=== PATIENT | female | born 1940 | race Caucasian/White ===

== ENCOUNTER 2016-07-26 22:19 | Inpatient (IN) | payer MEDICARE, MEDICAID ==
[2016-07-26] MEDS ORDERED: IBUPROFEN 400 MG TABLET PO ONE (22:52)
--- NOTE | 2016-07-26 22:53 | ER Document Report ---
ED General - General Time seen by provider: 22:50 Mode of Arrival: Ambulatory Information source: Friend Cannot obtain history due to: Other - patient is non-verbal TRAVEL OUTSIDE OF THE [place] IN LAST 30 DAYS: No - HPI Onset: Other - see HPI Onset/Duration: Gradual Associated symptoms: Fever <ROSINA ANDERSON - Last Filed: 07/27/16 05:26> <TYRONHU ISMAEL - Last Filed: 07/27/16 05:51> - General Chief Complaint: cough, fever, lethargy Stated Complaint: COUGH Notes: Patient is a 76 year-old female presenting to the emergency department with a fever. Patient's caregiver states that she has had a cough for the past few days and today started a fever. Patient is non-verbal. Patient has had no appetite, and has been feeling weak. Patient's caregiver states that the patient has just been sleeping a lot. Patient's temperature today was 103 F and was given Tylenol. Patient lives in a alf. Patient's PCP is Dr. Bernal. (ROSINA ANDERSON) - Related Data Allergies/Adverse Reactions: No Known Allergies Allergy (Verified 10/14/13 11:38) Past Medical History - General Information source: Friend - caregiver, [facility] Records - Social History Smoking Status: Unknown if Ever Smoked Family History: None Patient has suicidal ideation: No Patient has homicidal ideation: No - Past Medical History Cardiac Medical History: Reports: Hx Hypercholesterolemia, Hx Hypertension Neurological Medical History: Reports: Hx Cerebrovascular Accident Endocrine Medical History: Reports: Hx Diabetes Mellitus Type 1 Malignancy Medical History: Reports: Hx Skin Cancer GI Medical History: Reports: Hx Gastroesophageal Reflux Disease Past Surgical History: Reports: Hx Hysterectomy - Immunizations Hx Diphtheria, Pertussis, Tetanus Vaccination: Yes Hx Pneumococcal Vaccination: 03/16/10 <ROSINA ANDERSON - Last Filed: 07/27/16 05:26> Review of Systems - Review of Systems Constitutional: See HPI, Fever EENT: No symptoms reported Cardiovascular: No symptoms reported Respiratory: See HPI, Cough Gastrointestinal: See HPI, Poor appetite Genitourinary: No symptoms reported Female Genitourinary: No symptoms reported Musculoskeletal: No symptoms reported Skin: No symptoms reported Hematologic/Lymphatic: No symptoms reported Neurological/Psychological: No symptoms reported -: Yes All other systems reviewed and negative <ROSINA ANDERSON - Last Filed: 07/27/16 05:26> Physical Exam - Vital signs Interpretation: Hypotensive, Bradycardic, Febrile - General General appearance: Appears well, Alert In distress: Mild - HEENT Head: Normocephalic, Atraumatic Eyes: Normal Pupils: PERRL Mucous membranes: Dry - Respiratory Respiratory status: No respiratory distress Chest status: Nontender Breath sounds: Decreased air movement Chest palpation: Normal - Cardiovascular Rhythm: Regular Heart sounds: Normal auscultation - Abdominal Inspection: Normal Distension: No distension Bowel sounds: Normal Tenderness: Nontender Organomegaly: No organomegaly - Back Back: Normal, Nontender - Extremities General upper extremity: Normal inspection, Normal ROM, Normal strength General lower extremity: Normal inspection, Normal ROM, Normal strength - Neurological Neuro grossly intact: Yes Cognition: Normal Orientation: AAOx4 Crenshaw Coma Scale Eye Opening: Spontaneous Carlos Coma Scale Verbal: None Crenshaw Coma Scale Motor: Obeys Commands Carlos Coma Scale Total: 11 Speech: Other - patient is non-verbal - Psychological Associated symptoms: Normal affect, Normal mood - Skin Skin Temperature: Warm Skin Moisture: Dry <ROSINA ANDERSON - Last Filed: 07/27/16 05:26> - Vital signs Interpretation: Hypotensive, Bradycardic - Respiratory Breath sounds: Decreased air movement - L base. No: Normal <HU ACKERMAN - Last Filed: 07/27/16 05:51> - Vital signs Vitals: Temp 101.0 F H 07/26/16 22:55 (HU ACKERMAN) Course - Laboratory Result Diagrams: 07/27/16 00:41 07/27/16 00:41 <ROSINA ANDERSON - Last Filed: 07/27/16 05:26> - Laboratory Result Diagrams: 07/27/16 00:41 07/27/16 00:41 - Diagnostic Test Radiology reviewed: Image reviewed, Reports reviewed <HU ACKERMAN - Last Filed: 07/27/16 05:51> - Re-evaluation Re-evalutation: 07/27/16 Patient is a 76-year-old female who is brought in for weakness and fever at her place of living. Patient was found to be bradycardic and hypotensive. Patient is also febrile. Patient has concern for pneumonia with her cough and fever and also decreased breath sounds in her left base. Patient also with probable UTI on urinalysis. Patient will be given Rocephin and azithromycin. Blood pressure has responded to fluid bolus and also glucagon to counteract beta marcela. Stable at time of admission to the IMCU. (HU ACKERMAN) - Vital Signs Vital signs: Temp Pulse Resp BP Pulse Ox 97.8 F 14 124/62 90 L 07/27/16 04:21 07/27/16 05:14 07/27/16 05:14 07/27/16 05:14 (HU ACKERMAN) - Laboratory Laboratory results interpreted by me: 07/27/16 07/27/16 07/27/16 00:41 00:41 00:50 RDW 14.1 H Plt Count 142 L Monocytes % (Manual) 25 H Chloride 96 L BUN 21 H Creatinine 1.66 H Est GFR ( Amer) 36 L Est GFR (Non-Af Amer) 30 L Alkaline Phosphatase 139 H Urine Protein 30 H Urine Blood SMALL H Ur Leukocyte Esterase LARGE H (HU ACKERMAN) Discharge <ROSINA ANDERSON - Last Filed: 07/27/16 05:26> - [facility] <HU ACKERMAN - Last Filed: 07/27/16 05:51> - Discharge Clinical Impression: Renal insufficiency Pneumonia Qualifiers: Pneumonia type: due to unspecified organism Laterality: left Lung location: unspecified part of lung Qualified Code(s): J18.9 - Pneumonia, unspecified organism UTI (urinary tract infection) Qualifiers: Urinary tract infection type: site unspecified Hematuria presence: without hematuria Qualified Code(s): N39.0 - Urinary tract infection, site not specified Condition: Stable Disposition: ADMITTED INPATIENT Scribe Attestation: 07/27/16 05:18 I personally performed the services described in the documentation, reviewed and edited the documentation which was dictated to the scribe in my presence, and it accurately records my words and actions. (HU ACKERMAN) Scribe Documentation <ROSINA ANDERSON - Last Filed: 07/27/16 05:26> <HU ACKERMAN - Last Filed: 07/27/16 05:51> - Scribe Written by Scribe:: HU CUELLAR, EL 07/27/16 0200 Acting as scribe for: Dr. Ackerman ([facility]) (HU ACKERMAN)
[2016-07-26] MEDS ORDERED: NORMAL SALINE 1000 ML 1,000 ML IV ONE (23:21)
[2016-07-27] MEDS ORDERED: GLUCAGON,HUMAN RECOMB 1 MG INJ SUBCUT ONE (00:49)
[2016-07-27 00:56] LABS: VENOUS BLOOD PCO2 57.3 mmHg (35-63); VENOUS BLOOD PH 7.35 (7.30-7.42)
[2016-07-27 01:02] LABS: PROTHROMBIN TIME 13.4 SEC (11.4-15.4)
[2016-07-27 01:13] LABS: APPEARANCE,URINE CLOUDY; BILIRUBIN,URINE NEGATIVE (NEGATIVE); GLUCOSE, URINE NEGATIVE (NEGATIVE); KETONES,URINE NEGATIVE (NEGATIVE); LEUKOCYTE ESTERASE,URINE LARGE (NEGATIVE); NITRITE,URINE NEGATIVE (NEGATIVE); PROTEIN,URINE 30 mg/dL (NEGATIVE); URINE SPECIFIC GRAVITY 1.006; UROBILINOGEN,URINE NEGATIVE mg/dL (<2.0)
[2016-07-27] MEDS ORDERED: CEFTRIAXONE 1 GM/D5W RTU 50 ML IV ONE (01:14)
[2016-07-27 01:21] LABS: ALANINE AMINOTRANSFERASE 10 U/L (9-52); ALBUMIN 4.1 g/dL (3.5-5.0); ALKALINE PHOSPHATASE 139 U/L (38-126); ANION GAP 12 (5-19); ASPARTATE AMINO TRANSFERASE 19 U/L (14-36); BILIRUBIN,TOTAL 0.5 mg/dL (0.2-1.3); BLOOD UREA NITROGEN 21 mg/dL (7-20); CALCIUM 9.6 mg/dL (8.4-10.2); CARBON DIOXIDE 30 mmol/L (22-30); CHLORIDE 96 mmol/L (98-107); CREATININE RESULT 1.66 mg/dL (0.52-1.25); GLUCOSE 106 mg/dL (75-110); HEMATOCRIT 38.6 % (36.0-47.0); HEMOGLOBIN 12.8 g/dL (12.0-15.5); HGB HCT DIFFERENCE -0.2; MEAN CORPUSCULAR HEMOGLOBIN 29.8 pg (27.0-33.4); MEAN CORPUSCULAR HGB CONC 33.1 g/dL (32.0-36.0); MEAN CORPUSCULAR VOLUME 90 fl (80-97); RED BLOOD COUNT 4.29 10^6/uL (3.72-5.28); RED CELL DISTRIBUTION WIDTH 14.1 % (11.5-14.0); SODIUM 137.7 mmol/L (137-145); TOTAL PROTEIN 7.6 g/dL (6.3-8.2); WHITE BLOOD COUNT 4.6 10^3/uL (4.0-10.5)
[2016-07-27 01:37] LABS: BAND NEUTROPHILS % (MANUAL) 5 % (3-5); BASOPHILS % (MANUAL) 0 % (0-2); EOSINOPHILS % (MANUAL) 0 % (0-6); LYMPHOCYTES % (MANUAL) 21 % (13-45); TOTAL CELLS COUNTED 100
[2016-07-27 01:42] LABS: TOXIC GRANULATION SLIGHT
[2016-07-27 01:43] LABS: TEAR DROP CELLS SLIGHT; TOXIC VACUOLATION PRESENT
[2016-07-27] MEDS ORDERED: AZITHROMYCIN INJ 500 MG VIAL IV ONE (02:00)
[2016-07-27] MEDS ORDERED: NORMAL SALINE 1000 ML 1,000 ML IV PRN (08:57)
--- NOTE | 2016-07-27 09:43 | EKG REPORT ---
SEVERITY:- NORMAL ECG - SINUS RHYTHM : Confirmed by: Carmen Schmitt MD 27-Jul-2016 09:42:50
[2016-07-27 10:32] LABS: PROTHROMBIN TIME 13.2 SEC (11.4-15.4)
[2016-07-27 10:33] LABS: PARTIAL THROMBOPLASTIN TIME 26.6 SEC (23.5-35.8)
[2016-07-27] MEDS ORDERED: ENOXAPARIN SODIUM INJ 30 MG/0.3 ML DISP.SYRIN SUBCUT ONE (11:00)
[2016-07-27] MEDS ORDERED: LANSOPRAZOLE 30 MG TAB.RAP.DR PO ONE (11:00)
--- NOTE | 2016-07-27 17:39 | PDOC H&P ---
History of Present Illness Admission Date/PCP: 07/27/16 08:56 Patient complains of: Fever and Cough History of Present Illness: JOSE PHILLIP is a 76 year old female resident at a local long term. She was brought to the ED by caregiver with listed complaints. business office associate reported few days of minimally productive cough with associated generalized weakness, increase sleepiness, poor appetite and oral intake. On the day of presentation patient had fever or 103F for which she received Tylenol at home. Her initial assessment in the ED was remarkable for episode of hypotension, hypoxemia and decrease breath sounds. There was associated abnormal urinalysis findings. In view of her presenting constellation and clinical findings patient was advised hospitalization for further evaluation and management. Past Medical History Cardiac Medical History: Reports: Hyperlipidema, Hypertension Denies: Coronary Artery Disease, Myocardial Infarction Pulmonary Medical History: Denies: Asthma, Bronchitis, Chronic Obstructive Pulmonary Disease (COPD), Pneumonia Neurological Medical History: Denies: Seizures Endocrine Medical History: Reports: Diabetes Mellitus Type 1 Malignancy Medical History: Reports: Skin Cancer GI Medical History: Reports: Gastroesophageal Reflux Disease Musculoskeltal Medical History: Denies: Arthritis Hematology: Denies: Anemia Past Surgical History Past Surgical History: Reports: Hysterectomy Social History Smoking Status: Unknown if Ever Smoked Frequency of Alcohol Use: None Hx Recreational Drug Use: No Hx Prescription Drug Abuse: No Family History Family History: None Parental Family History Reviewed: Yes Children Family History Reviewed: Yes Sibling(s) Family History Reviewed.: Yes Medication/Allergy Home Medications: Amlodipine Besylate [Norvasc 2.5 mg Tablet] 2.5 mg PO DAILY 07/27/16 Aspirin [Aspirin 81 mg Chewable Tablet] 81 mg PO DAILY 07/27/16 Calcium Carbonate [Os-Adolfo 500 mg Tablet (Oyster-Shell)] 500 mg PO BID 07/27/16 Cetirizine HCl [Zyrtec 10 mg Tablet] 10 mg PO DAILY 07/27/16 Levothyroxine Sodium [Synthroid 0.1 mg Tablet] 100 mcg PO DAILY 07/27/16 Omeprazole 20 mg PO DAILY 07/27/16 Propranolol HCl 80 mg PO QHS 07/27/16 Propranolol HCl [Inderal] 60 mg PO QAM 07/27/16 Rosuvastatin Calcium [Crestor 5 mg Tablet] 5 mg PO QHS 07/27/16 Allergies/Adverse Reactions: No Known Allergies Allergy (Verified 10/14/13 11:38) Review of Systems ROS unobtainable: Due to mental status All systems: reviewed and no additional remarkable complaints except as stated Physical Exam Vital Signs: Temp Pulse Resp BP Pulse Ox 100.3 F 91 22 H 156/56 H 94 07/27/16 16:03 07/27/16 16:03 07/27/16 16:03 07/27/16 16:03 07/27/16 16:03 Intake & Output 07/26/16 07/27/16 07/28/16 06:59 06:59 06:59 Intake Total 240 Balance 240 General appearance: PRESENT: no acute distress, cooperative Head exam: PRESENT: atraumatic, normocephalic Eye exam: PRESENT: conjunctiva pink, EOMI, PERRLA. ABSENT: scleral icterus Ear exam: PRESENT: normal external ear exam Mouth exam: PRESENT: moist, tongue midline Throat exam: ABSENT: post pharyngeal erythema, tonsillar erythema, tonsillar exudate, tonsillogmegaly, other Neck exam: PRESENT: full ROM. ABSENT: carotid bruit, JVD, lymphadenopathy, thyromegaly Respiratory exam: PRESENT: crackles - basilar region, decreased breath sounds. ABSENT: accessory muscle use, chest wall tenderness, clear to auscultation kim, prolonged expiratory phas, rales, retraction, rhonchi, stridor, symmetrical, tachypnea, unlabored, wheezes, other Cardiovascular exam: PRESENT: RRR. ABSENT: diastolic murmur, rubs, systolic murmur GI/Abdominal exam: PRESENT: normal bowel sounds, soft. ABSENT: distended, guarding, mass, organolmegaly, rebound, tenderness Extremities exam: PRESENT: full ROM Musculoskeletal exam: PRESENT: ambulatory, full ROM, normal inspection Neurological exam: PRESENT: altered - related to her developmental mental retardation, awake, reflexes normal, normal gait Psychiatric exam: PRESENT: appropriate affect, normal mood Skin exam: PRESENT: dry, intact, warm. ABSENT: cyanosis, rash Results Impressions: Chest X-Ray 07/26/16 22:41 IMPRESSION: HEART ENLARGED WITHOUT FAILURE. NO OTHER SIGNIFICANT RADIOGRAPHIC FINDING IN THE CHEST. Status: Image reviewed by me - moderate cardiomegaly without any other significant pathology. Assessment & Plan - Diagnosis (1) Fatigue Qualifiers: Fatigue type: unspecified Qualified Code(s): R53.83 - Other fatigue Is this a current diagnosis for this admission?: YesPlan: Related to ongoing infectious process, loss of appetite and poor oral intake. We will start on oral nutritional supplementation. (2) Pneumonia Qualifiers: Pneumonia type: due to unspecified organism Laterality: left Lung location: unspecified part of lung Qualified Code(s): J18.9 - Pneumonia, unspecified organism Is this a current diagnosis for this admission?: YesPlan: Start on IV Zithromax and IV Rocephin coverage. Follow up on blood culture findings. (3) UTI (urinary tract infection) Qualifiers: Urinary tract infection type: site unspecified Hematuria presence: without hematuria Qualified Code(s): N39.0 - Urinary tract infection, site not specified Is this a current diagnosis for this admission?: YesPlan: Start on IV Rocephin coverage. Follow on urine culture findings for appropriate antibiotic selection and dosage adjustment. (4) HLD (hyperlipidemia) Is this a current diagnosis for this admission?: YesPlan: Continue preadmission medication management. (5) HTN (hypertension) Is this a current diagnosis for this admission?: YesPlan: Continue preadmission medication management. (6) Hypothyroid Qualifiers: Hypothyroidism type: acquired Qualified Code(s): E03.9 - Hypothyroidism, unspecified Is this a current diagnosis for this admission?: YesPlan: Continue preadmission medication management. (7) Moderate mental retardation Is this a current diagnosis for this admission?: YesPlan: Continue preadmission management with environment supervision and reorientation intervention. - Time Time Spent: 50 to 70 Minutes Medications reviewed and adjusted accordingly: Yes Anticipated discharge: Home Within: Other - Inpatient Certification Based on my medical assessment, after consideration of the patient's comorbidities, presenting symptoms, or acuity I expect that the services needed warrant INPATIENT care.: Yes I certify that my determination is in accordance with my understanding of Medicare's requirements for reasonable and necessary INPATIENT services [42 CFR 412.3e].: Yes Medical Necessity: Need Close Monitoring Due to Risk of Patient Decompensation, Need For IV Fluids, Need for IV Antibiotics, Risk of Complication if Not Cared For in Hospital Post Hospital Care: D/C Sustainability Engineer Documentation - Plan Summary Plan Summary: See admitting physician orders.
[2016-07-27] MEDS ORDERED: ACETAMINOPHEN 325 MG TABLET PO PRN (17:40)
[2016-07-27] MEDS: AZITHROMYCIN 500 MG in DEXTROSE 5%-WATER 250 ML IV SCH (21:57)
[2016-07-27] MEDS: CEFTRIAXONE 1 GM/D5W RTU 1 GM/50 ML RTUPB IV SCH (23:58)
[2016-07-28] MEDS: LANSOPRAZOLE 30 MG TAB.RAP.DR PO SCH (05:53)
[2016-07-28 06:10] LABS: HEMATOCRIT 41.6 % (36.0-47.0); HEMOGLOBIN 13.1 g/dL (12.0-15.5); HGB HCT DIFFERENCE -2.3; MEAN CORPUSCULAR HEMOGLOBIN 28.7 pg (27.0-33.4); MEAN CORPUSCULAR HGB CONC 31.5 g/dL (32.0-36.0); MEAN CORPUSCULAR VOLUME 91 fl (80-97); RED BLOOD COUNT 4.56 10^6/uL (3.72-5.28); RED CELL DISTRIBUTION WIDTH 14.5 % (11.5-14.0); WHITE BLOOD COUNT 3.5 10^3/uL (4.0-10.5)
[2016-07-28 06:24] LABS: ALANINE AMINOTRANSFERASE 20 U/L (9-52); ALBUMIN 3.3 g/dL (3.5-5.0); ALKALINE PHOSPHATASE 117 U/L (38-126); ANION GAP 10 (5-19); ASPARTATE AMINO TRANSFERASE 29 U/L (14-36); BILIRUBIN,TOTAL 0.2 mg/dL (0.2-1.3); BLOOD UREA NITROGEN 18 mg/dL (7-20); CALCIUM 8.5 mg/dL (8.4-10.2); CARBON DIOXIDE 29 mmol/L (22-30); CHLORIDE 102 mmol/L (98-107); CREATININE RESULT 1.32 mg/dL (0.52-1.25); GLUCOSE 80 mg/dL (75-110); POTASSIUM 3.5 mmol/L (3.6-5.0); TOTAL PROTEIN 7.3 g/dL (6.3-8.2)
[2016-07-28 06:47] LABS: BASOPHILS % (MANUAL) 0 % (0-2); EOSINOPHILS % (MANUAL) 0 % (0-6); LYMPHOCYTES % (MANUAL) 33 % (13-45); TOTAL CELLS COUNTED 100
[2016-07-28 07:02] LABS: ANISOCYTOSIS SLIGHT; POLYCHROMASIA SLIGHT; TOXIC VACUOLATION PRESENT
[2016-07-28] MEDS ORDERED: INFLUENZA ADLT QUAD (36MOS+) 2016-17 VAC 0.5 ML SYR IM PRN (07:21)
[2016-07-28] MEDS ORDERED: ENOXAPARIN SODIUM INJ 40 MG/0.4 ML DISP.SYRIN SUBCUT SCH (08:00)
[2016-07-28] MEDS: ENOXAPARIN SODIUM INJ 30 MG/0.3 ML DISP.SYRIN SUBCUT SCH (08:20)
[2016-07-28] MEDS: AMLODIPINE BESYLATE 2.5 MG TABLET PO SCH (10:19)
[2016-07-28] MEDS: LEVOTHYROXINE SODIUM 0.1 MG TABLET PO SCH (10:19)
[2016-07-28] MEDS: POTASSI CL 20 MEQ/50 ML RIDER 50 ML IV SCH ×2 (10:20→12:04)
[2016-07-28 14:13] LABS: PATH REVIEW PATHOLOGIST REVIEWED
--- NOTE | 2016-07-28 14:45 | PDOC PROGRESS REPORT ---
Subjective Progress Note for:: 07/28/16 Subjective:: Remain at baseline mental limitation due to developmental deficiency. No reported fever, vomiting, difficulty with breathing or observed chest pain. Remain on IV Zithromax and Rocephin coverage. She remain on IV fluid support. Tolerating oral feeding with cut food and meat. Physical Exam Vital Signs: Temp Pulse Resp BP Pulse Ox 99.3 F 114 H 20 138/65 H 97 07/28/16 11:20 07/28/16 11:20 07/28/16 11:20 07/28/16 11:20 07/28/16 11:20 Intake & Output 07/27/16 07/28/16 07/29/16 06:59 06:59 06:59 Intake Total 1690 67 Balance 1690 67 Weight 60.1 kg General appearance: PRESENT: no acute distress, well-developed, well-nourished Head exam: PRESENT: atraumatic, normocephalic Eye exam: PRESENT: conjunctiva pink, EOMI, PERRLA. ABSENT: scleral icterus Neck exam: PRESENT: full ROM. ABSENT: carotid bruit, JVD, lymphadenopathy, thyromegaly Respiratory exam: PRESENT: decreased breath sounds. ABSENT: accessory muscle use, chest wall tenderness, clear to auscultation kim, crackles, prolonged expiratory phas, rales, retraction, rhonchi, stridor, symmetrical, tachypnea, unlabored, wheezes, other Cardiovascular exam: PRESENT: RRR. ABSENT: diastolic murmur, rubs, systolic murmur GI/Abdominal exam: PRESENT: normal bowel sounds, soft. ABSENT: distended, guarding, mass, organolmegaly, rebound, tenderness Musculoskeletal exam: PRESENT: ambulatory Neurological exam: PRESENT: alert, awake, other - limited verbal communication due to her developmental deficiency. Psychiatric exam: PRESENT: flat affect, normal mood Skin exam: PRESENT: dry, intact, warm. ABSENT: cyanosis, rash Results Laboratory Results: 07/28/16 05:18 07/28/16 05:18 07/28/16 07/28/16 07/28/16 05:18 05:18 05:18 WBC 3.5 L RBC 4.56 Hgb 13.1 Hct 41.6 MCV 91 MCH 28.7 MCHC 31.5 L RDW 14.5 H Plt Count 118 L Seg Neutrophils % Not Reportable Lymphocytes % Not Reportable Monocytes % Not Reportable Eosinophils % Not Reportable Basophils % Not Reportable Absolute Neutrophils Not Reportable Absolute Lymphocytes Not Reportable Absolute Monocytes Not Reportable Absolute Eosinophils Not Reportable Absolute Basophils Not Reportable Sodium 141.0 Potassium 3.5 L Chloride 102 Carbon Dioxide 29 Anion Gap 10 BUN 18 Creatinine 1.32 H Est GFR ( Amer) 47 L Est GFR (Non-Af Amer) 39 L Glucose 80 Calcium 8.5 Magnesium 1.9 Total Bilirubin 0.2 AST 29 ALT 20 Alkaline Phosphatase 117 Total Protein 7.3 Albumin 3.3 L Impressions: Chest X-Ray 07/26/16 22:41 IMPRESSION: HEART ENLARGED WITHOUT FAILURE. NO OTHER SIGNIFICANT RADIOGRAPHIC FINDING IN THE CHEST. Assessment & Plan - Diagnosis (1) Fatigue Qualifiers: Fatigue type: unspecified Qualified Code(s): R53.83 - Other fatigue Is this a current diagnosis for this admission?: Yes (2) Pneumonia Qualifiers: Pneumonia type: due to unspecified organism Laterality: left Lung location: unspecified part of lung Qualified Code(s): J18.9 - Pneumonia, unspecified organism Is this a current diagnosis for this admission?: YesPlan: Start on IV Zithromax and IV Rocephin coverage. Follow up on blood culture findings of gram positive cocci in clusters for organism identification and sensitivity for adjustment in antibiotic coverage as needed. (3) UTI (urinary tract infection) Qualifiers: Urinary tract infection type: site unspecified Hematuria presence: without hematuria Qualified Code(s): N39.0 - Urinary tract infection, site not specified Is this a current diagnosis for this admission?: YesPlan: Start on IV Rocephin coverage. Follow on urine culture growth of gram negative rods for organism identification and sensitivity. I will adjust coverage based of final report. (4) HLD (hyperlipidemia) Is this a current diagnosis for this admission?: Yes (5) HTN (hypertension) Is this a current diagnosis for this admission?: Yes (6) Hypothyroid Qualifiers: Hypothyroidism type: acquired Qualified Code(s): E03.9 - Hypothyroidism, unspecified Is this a current diagnosis for this admission?: Yes (7) Moderate mental retardation Is this a current diagnosis for this admission?: Yes (8) Hypokalemia due to loss of potassium Is this a current diagnosis for this admission?: YesPlan: Patient will receive potassium chloride supplementation via K-Tevin. Her serum Magnesium level was satisfactorily adequate. - Time Time Spent with patient: 25-34 minutes Medications reviewed and adjusted accordingly: Yes Anticipated discharge: Home - retirement. Within: Other - Inpatient Certification Based on my medical assessment, after consideration of the patient's comorbidities, presenting symptoms, or acuity I expect that the services needed warrant INPATIENT care.: Yes I certify that my determination is in accordance with my understanding of Medicare's requirements for reasonable and necessary INPATIENT services [42 CFR 412.3e].: Yes Medical Necessity: Need For IV Fluids, Need for IV Antibiotics, Risk of Complication if Not Cared For in Hospital Post Hospital Care: D/C Scarfer Operator Documentation - Plan Summary Plan Summary: see attending physician orders.
[2016-07-28] MEDS ORDERED: (PENDING PHARMACY ID) (Rosuvastatin Calcium [Crestor 5 Mg Tablet] 5 MG) PO SCH (22:00)
[2016-07-28] MEDS: ATORVASTATIN CALCIUM 10 MG TABLET PO SCH (23:04)
[2016-07-28] MEDS: AZITHROMYCIN 500 MG in DEXTROSE 5%-WATER 250 ML IV SCH (23:05)
[2016-07-29] MEDS: CEFTRIAXONE 1 GM/D5W RTU 1 GM/50 ML RTUPB IV SCH (04:14)
[2016-07-29] MEDS: LANSOPRAZOLE 30 MG TAB.RAP.DR PO SCH (05:51)
[2016-07-29 07:28] LABS: HEMATOCRIT 39.6 % (36.0-47.0); HGB HCT DIFFERENCE -0.6; MEAN CORPUSCULAR HEMOGLOBIN 29.5 pg (27.0-33.4); MEAN CORPUSCULAR HGB CONC 32.8 g/dL (32.0-36.0); MEAN CORPUSCULAR VOLUME 90 fl (80-97); RED CELL DISTRIBUTION WIDTH 14.5 % (11.5-14.0); WHITE BLOOD COUNT 2.8 10^3/uL (4.0-10.5)
[2016-07-29 07:31] LABS: ANION GAP 13 (5-19); BLOOD UREA NITROGEN 16 mg/dL (7-20); CARBON DIOXIDE 26 mmol/L (22-30); CHLORIDE 104 mmol/L (98-107); CREATININE RESULT 1.01 mg/dL (0.52-1.25); GLUCOSE 86 mg/dL (75-110); POTASSIUM 4.1 mmol/L (3.6-5.0); SODIUM 142.7 mmol/L (137-145)
[2016-07-29 08:15] LABS: BASOPHILS % (MANUAL) 0 % (0-2); EOSINOPHILS % (MANUAL) 0 % (0-6); LYMPHOCYTES % (MANUAL) 59 % (13-45); TOTAL CELLS COUNTED 100
[2016-07-29 08:16] LABS: ANISOCYTOSIS SLIGHT; POLYCHROMASIA SLIGHT
[2016-07-29] MEDS: ENOXAPARIN SODIUM INJ 30 MG/0.3 ML DISP.SYRIN SUBCUT SCH (12:27)
[2016-07-29] MEDS: LEVOTHYROXINE SODIUM 0.1 MG TABLET PO SCH (12:28)
[2016-07-29] MEDS: AMLODIPINE BESYLATE 2.5 MG TABLET PO SCH (12:28)
--- NOTE | 2016-07-29 13:12 | PDOC PROGRESS REPORT ---
Subjective Progress Note for:: 07/29/16 Subjective:: No reported fever, vomiting, difficulty with breathing or observed chest pain. Maintain on IV Zithromax and Rocephin coverage. She remain on IV fluid support. Tolerating oral feeding with cut food and meat. Blood culture growth of micrococcus species probably contaminant. Physical Exam Vital Signs: Temp Pulse Resp BP Pulse Ox 98.3 F 79 18 124/63 95 07/29/16 07:59 07/29/16 07:59 07/28/16 23:34 07/29/16 07:59 07/29/16 07:59 Intake & Output 07/28/16 07/29/16 07/30/16 06:59 06:59 06:59 Intake Total 1690 3068 Balance 1690 3068 Weight 60.1 kg General appearance: PRESENT: no acute distress Head exam: PRESENT: atraumatic, normocephalic Eye exam: PRESENT: conjunctiva pink, EOMI, PERRLA Mouth exam: PRESENT: moist, neck supple Respiratory exam: ABSENT: accessory muscle use, chest wall tenderness, clear to auscultation kim, crackles, decreased breath sounds, prolonged expiratory phas, rales, retraction, rhonchi, stridor, symmetrical, tachypnea, unlabored, wheezes , other Cardiovascular exam: PRESENT: RRR. ABSENT: diastolic murmur, rubs, systolic murmur GI/Abdominal exam: PRESENT: normal bowel sounds, soft. ABSENT: distended, guarding, mass, organolmegaly, rebound, tenderness Extremities exam: PRESENT: full ROM Musculoskeletal exam: PRESENT: full ROM, normal inspection Neurological exam: PRESENT: altered - baseline mental limitation due to developmental deficiency. Psychiatric exam: PRESENT: appropriate affect, normal mood. ABSENT: homicidal ideation, suicidal ideation Skin exam: PRESENT: dry, intact, warm. ABSENT: cyanosis, rash Results Laboratory Results: 07/29/16 05:52 07/29/16 05:52 07/28/16 07/29/16 07/29/16 05:18 05:52 05:52 WBC 3.5 L 2.8 L RBC 4.56 4.40 Hgb 13.1 13.0 Hct 41.6 39.6 MCV 91 90 MCH 28.7 29.5 MCHC 31.5 L 32.8 RDW 14.5 H 14.5 H Plt Count 118 L 121 L Seg Neutrophils % Not Reportable Lymphocytes % Not Reportable Monocytes % Not Reportable Eosinophils % Not Reportable Basophils % Not Reportable Absolute Neutrophils Not Reportable Absolute Lymphocytes Not Reportable Absolute Monocytes Not Reportable Absolute Eosinophils Not Reportable Absolute Basophils Not Reportable Sodium 142.7 Potassium 4.1 Chloride 104 Carbon Dioxide 26 Anion Gap 13 BUN 16 Creatinine 1.01 Est GFR ( Amer) > 60 Est GFR (Non-Af Amer) 53 L Glucose 86 Calcium 9.0 Impressions: Chest X-Ray 07/26/16 22:41 IMPRESSION: HEART ENLARGED WITHOUT FAILURE. NO OTHER SIGNIFICANT RADIOGRAPHIC FINDING IN THE CHEST. Assessment & Plan - Diagnosis (1) Fatigue Qualifiers: Fatigue type: unspecified Qualified Code(s): R53.83 - Other fatigue Is this a current diagnosis for this admission?: Yes (2) Pneumonia Qualifiers: Pneumonia type: due to unspecified organism Laterality: left Lung location: unspecified part of lung Qualified Code(s): J18.9 - Pneumonia, unspecified organism Is this a current diagnosis for this admission?: YesPlan: Start on IV Zithromax and IV Rocephin coverage. Blood culture finding of Micrococcus species is most likely contaminant. (3) UTI (urinary tract infection) Qualifiers: Urinary tract infection type: acute cystitis Hematuria presence: without hematuria Qualified Code(s): N30.00 - Acute cystitis without hematuria Is this a current diagnosis for this admission?: YesPlan: Maintain on IV Rocephin coverage. Follow on urine culture growth of gram negative rods for organism identification and sensitivity. I will adjust coverage based of final report. (4) HLD (hyperlipidemia) Is this a current diagnosis for this admission?: Yes (5) HTN (hypertension) Is this a current diagnosis for this admission?: Yes (6) Hypothyroid Qualifiers: Hypothyroidism type: acquired Qualified Code(s): E03.9 - Hypothyroidism, unspecified Is this a current diagnosis for this admission?: Yes (7) Moderate mental retardation Is this a current diagnosis for this admission?: Yes (8) Hypokalemia due to loss of potassium Is this a current diagnosis for this admission?: Yes - Time Time Spent with patient: 25-34 minutes Medications reviewed and adjusted accordingly: Yes Anticipated discharge: Home - penitentiary Within: Other - Inpatient Certification Medical Necessity: Need For IV Fluids, Need for IV Antibiotics, Risk of Complication if Not Cared For in Hospital Post Hospital Care: D/C Cloth Carrier Documentation - Plan Summary Plan Summary: see attending physician orders.
[2016-07-29] MEDS: AZITHROMYCIN 500 MG in DEXTROSE 5%-WATER 250 ML IV SCH (21:05)
[2016-07-29] MEDS: ATORVASTATIN CALCIUM 10 MG TABLET PO SCH (21:05)
[2016-07-30] MEDS: CEFTRIAXONE 1 GM/D5W RTU 1 GM/50 ML RTUPB IV SCH ×2 (02:38→23:38)
[2016-07-30] MEDS: LANSOPRAZOLE 30 MG TAB.RAP.DR PO SCH (05:45)
[2016-07-30] MEDS: ENOXAPARIN SODIUM INJ 30 MG/0.3 ML DISP.SYRIN SUBCUT SCH (08:15)
[2016-07-30] MEDS: AMLODIPINE BESYLATE 2.5 MG TABLET PO SCH (09:34)
[2016-07-30] MEDS: LEVOTHYROXINE SODIUM 0.1 MG TABLET PO SCH (09:34)
--- NOTE | 2016-07-30 11:55 | PDOC PROGRESS REPORT ---
Subjective Progress Note for:: 07/30/16 Subjective:: No reported fever, vomiting, difficulty with breathing or observed chest pain. Maintain on IV Zithromax and Rocephin coverage. She remain on IV fluid support. Tolerating oral feeding with cut food and meat. Urine culture grew E. coli sensitive to Ceftriaxone. Physical Exam Vital Signs: Temp Pulse Resp BP Pulse Ox 98.2 F 70 16 136/78 H 96 07/30/16 07:41 07/30/16 07:41 07/30/16 07:41 07/30/16 07:41 07/30/16 07:41 Intake & Output 07/29/16 07/30/16 07/31/16 06:59 06:59 06:59 Intake Total 3068 1186 Balance 3068 1186 General appearance: PRESENT: no acute distress, cooperative, well-developed, well-nourished Head exam: PRESENT: atraumatic, normocephalic Eye exam: PRESENT: conjunctiva pink, EOMI, PERRLA Mouth exam: PRESENT: moist Respiratory exam: ABSENT: accessory muscle use, chest wall tenderness, clear to auscultation kim, crackles, decreased breath sounds, prolonged expiratory phas, rales, retraction, rhonchi, stridor, symmetrical, tachypnea, unlabored, wheezes , other Cardiovascular exam: PRESENT: RRR. ABSENT: diastolic murmur, rubs, systolic murmur GI/Abdominal exam: PRESENT: normal bowel sounds, soft. ABSENT: distended, guarding, mass, organolmegaly, rebound, tenderness Extremities exam: PRESENT: full ROM Neurological exam: PRESENT: altered - due to baseline developmental limitation, awake - appropriate in simple responses and gestures Psychiatric exam: PRESENT: appropriate affect, normal mood Skin exam: PRESENT: dry, warm Results Laboratory Results: 07/29/16 05:52 07/29/16 05:52 Impressions: Chest X-Ray 07/26/16 22:41 IMPRESSION: HEART ENLARGED WITHOUT FAILURE. NO OTHER SIGNIFICANT RADIOGRAPHIC FINDING IN THE CHEST. Assessment & Plan - Diagnosis (1) Fatigue Qualifiers: Fatigue type: unspecified Qualified Code(s): R53.83 - Other fatigue Is this a current diagnosis for this admission?: Yes (2) Pneumonia Qualifiers: Pneumonia type: due to unspecified organism Laterality: left Lung location: unspecified part of lung Qualified Code(s): J18.9 - Pneumonia, unspecified organism Is this a current diagnosis for this admission?: YesPlan: Maintain on IV Rocephin coverage. I will discontinue IV Zithromax. Consideration of oral antibiotic coverage and discharge very soon. (3) UTI (urinary tract infection) Qualifiers: Urinary tract infection type: acute cystitis Hematuria presence: without hematuria Qualified Code(s): N30.00 - Acute cystitis without hematuria Is this a current diagnosis for this admission?: YesPlan: Maintain on IV Rocephin coverage. (4) HLD (hyperlipidemia) Is this a current diagnosis for this admission?: Yes (5) HTN (hypertension) Is this a current diagnosis for this admission?: Yes (6) Hypothyroid Qualifiers: Hypothyroidism type: acquired Qualified Code(s): E03.9 - Hypothyroidism, unspecified Is this a current diagnosis for this admission?: Yes (7) Moderate mental retardation Is this a current diagnosis for this admission?: Yes (8) Hypokalemia due to loss of potassium Is this a current diagnosis for this admission?: Yes - Time Anticipated discharge: Home - custodial Within: Other - Inpatient Certification Based on my medical assessment, after consideration of the patient's comorbidities, presenting symptoms, or acuity I expect that the services needed warrant INPATIENT care.: Yes I certify that my determination is in accordance with my understanding of Medicare's requirements for reasonable and necessary INPATIENT services [42 CFR 412.3e].: Yes Medical Necessity: Need For IV Fluids, Need for IV Antibiotics, Risk of Complication if Not Cared For in Hospital Post Hospital Care: D/C Real Estate Development Manager Documentation - Plan Summary Plan Summary: see admitting physician orders
[2016-07-30] MEDS: ATORVASTATIN CALCIUM 10 MG TABLET PO SCH (22:35)
[2016-07-31 05:13] LABS: HEMATOCRIT 40.8 % (36.0-47.0); HEMOGLOBIN 12.9 g/dL (12.0-15.5); HGB HCT DIFFERENCE -2.1; MEAN CORPUSCULAR HEMOGLOBIN 28.9 pg (27.0-33.4); MEAN CORPUSCULAR HGB CONC 31.6 g/dL (32.0-36.0); MEAN CORPUSCULAR VOLUME 91 fl (80-97); RED BLOOD COUNT 4.47 10^6/uL (3.72-5.28); RED CELL DISTRIBUTION WIDTH 14.4 % (11.5-14.0); WHITE BLOOD COUNT 2.6 10^3/uL (4.0-10.5)
[2016-07-31] MEDS: LANSOPRAZOLE 30 MG TAB.RAP.DR PO SCH (05:29)
[2016-07-31 05:32] LABS: ANION GAP 12 (5-19); BLOOD UREA NITROGEN 15 mg/dL (7-20); CARBON DIOXIDE 27 mmol/L (22-30); CHLORIDE 105 mmol/L (98-107); CREATININE RESULT 0.87 mg/dL (0.52-1.25); GLUCOSE 82 mg/dL (75-110); SODIUM 143.6 mmol/L (137-145)
[2016-07-31 05:44] LABS: BAND NEUTROPHILS % (MANUAL) 4 % (3-5); BASOPHILS % (MANUAL) 0 % (0-2); EOSINOPHILS % (MANUAL) 3 % (0-6); LYMPHOCYTES % (MANUAL) 63 % (13-45); TOTAL CELLS COUNTED 100
[2016-07-31 05:45] LABS: ANISOCYTOSIS SLIGHT
[2016-07-31] MEDS: AMLODIPINE BESYLATE 2.5 MG TABLET PO SCH (11:10)
[2016-07-31] MEDS: LEVOTHYROXINE SODIUM 0.1 MG TABLET PO SCH (11:10)
--- NOTE | 2016-07-31 11:10 | PDOC PROGRESS REPORT ---
Subjective Progress Note for:: 07/31/16 Subjective:: No reported fever, vomiting, difficulty with breathing or observed chest pain. Maintain on IV Rocephin coverage. She remain on IV fluid support. Tolerating oral feeding. Physical Exam Vital Signs: Temp Pulse Resp BP Pulse Ox 97.6 F 77 15 146/90 H 96 07/31/16 07:34 07/31/16 07:34 07/31/16 07:34 07/31/16 07:34 07/30/16 23:41 Intake & Output 07/30/16 07/31/16 08/01/16 06:59 06:59 06:59 Intake Total 1186 1451 175 Balance 1186 1451 175 General appearance: PRESENT: no acute distress, well-developed, well-nourished Head exam: PRESENT: atraumatic, normocephalic Eye exam: PRESENT: conjunctiva pink, EOMI, PERRLA Mouth exam: PRESENT: moist Teeth exam: PRESENT: poor dentation Respiratory exam: ABSENT: accessory muscle use, chest wall tenderness, clear to auscultation kim, crackles, decreased breath sounds, prolonged expiratory phas, rales, retraction, rhonchi, stridor, symmetrical, tachypnea, unlabored, wheezes , other Pulses: PRESENT: normal dorsalis pedis pul, +2 pedal pulses bilateral GI/Abdominal exam: PRESENT: normal bowel sounds, soft. ABSENT: distended, guarding, mass, organolmegaly, rebound, tenderness Extremities exam: PRESENT: full ROM Musculoskeletal exam: PRESENT: full ROM, normal inspection Neurological exam: PRESENT: alert, awake - and cooperative with examination. Baseline mental limitation due to developmental deficit Psychiatric exam: PRESENT: appropriate affect, normal mood. ABSENT: homicidal ideation, suicidal ideation Skin exam: PRESENT: dry, intact, warm. ABSENT: cyanosis, rash Results Laboratory Results: 07/31/16 04:11 07/31/16 04:11 07/31/16 07/31/16 04:11 04:11 WBC 2.6 L RBC 4.47 Hgb 12.9 Hct 40.8 MCV 91 MCH 28.9 MCHC 31.6 L RDW 14.4 H Plt Count 127 L Seg Neutrophils % Not Reportable Lymphocytes % Not Reportable Monocytes % Not Reportable Eosinophils % Not Reportable Basophils % Not Reportable Absolute Neutrophils Not Reportable Absolute Lymphocytes Not Reportable Absolute Monocytes Not Reportable Absolute Eosinophils Not Reportable Absolute Basophils Not Reportable Sodium 143.6 Potassium 4.0 Chloride 105 Carbon Dioxide 27 Anion Gap 12 BUN 15 Creatinine 0.87 Est GFR ( Amer) > 60 Est GFR (Non-Af Amer) > 60 Glucose 82 Calcium 9.0 Impressions: Chest X-Ray 07/26/16 22:41 IMPRESSION: HEART ENLARGED WITHOUT FAILURE. NO OTHER SIGNIFICANT RADIOGRAPHIC FINDING IN THE CHEST. Assessment & Plan - Diagnosis (1) Fatigue Qualifiers: Fatigue type: unspecified Qualified Code(s): R53.83 - Other fatigue Is this a current diagnosis for this admission?: Yes (2) Pneumonia Qualifiers: Pneumonia type: due to unspecified organism Laterality: left Lung location: unspecified part of lung Qualified Code(s): J18.9 - Pneumonia, unspecified organism Is this a current diagnosis for this admission?: YesPlan: Maintain on IV Rocephin coverage. Obtain repeat chest X ray. Consideration of oral antibiotic coverage and discharge very soon. (3) UTI (urinary tract infection) Qualifiers: Urinary tract infection type: acute cystitis Hematuria presence: without hematuria Qualified Code(s): N30.00 - Acute cystitis without hematuria Is this a current diagnosis for this admission?: YesPlan: Maintain on IV Rocephin coverage. (4) HLD (hyperlipidemia) Is this a current diagnosis for this admission?: Yes (5) HTN (hypertension) Is this a current diagnosis for this admission?: Yes (6) Hypothyroid Qualifiers: Hypothyroidism type: acquired Qualified Code(s): E03.9 - Hypothyroidism, unspecified Is this a current diagnosis for this admission?: Yes (7) Moderate mental retardation Is this a current diagnosis for this admission?: Yes (8) Hypokalemia due to loss of potassium Is this a current diagnosis for this admission?: Yes - Time Time Spent with patient: 25-34 minutes Medications reviewed and adjusted accordingly: Yes Anticipated discharge: Home - [facility]. Within: within 24 hours - Inpatient Certification Medical Necessity: Need For IV Fluids, Need for IV Antibiotics, Risk of Complication if Not Cared For in Hospital Post Hospital Care: D/C Lead Pressman Documentation - Plan Summary Plan Summary: see attending physician orders.
[2016-07-31] MEDS: ENOXAPARIN SODIUM INJ 30 MG/0.3 ML DISP.SYRIN SUBCUT SCH (11:11)
[2016-07-31] MEDS: ATORVASTATIN CALCIUM 10 MG TABLET PO SCH (22:30)
[2016-08-01] MEDS: CEFTRIAXONE 1 GM/D5W RTU 1 GM/50 ML RTUPB IV SCH (01:06)
[2016-08-01] MEDS: LANSOPRAZOLE 30 MG TAB.RAP.DR PO SCH (05:58)
[2016-08-01] MEDS: ENOXAPARIN SODIUM INJ 30 MG/0.3 ML DISP.SYRIN SUBCUT SCH (09:07)
[2016-08-01] MEDS: LEVOTHYROXINE SODIUM 0.1 MG TABLET PO SCH (09:10)
[2016-08-01] MEDS: AMLODIPINE BESYLATE 2.5 MG TABLET PO SCH (09:10)
--- NOTE | 2016-08-01 09:11 | PDOC PROGRESS REPORT ---
Subjective Progress Note for:: 08/01/16 Subjective:: No reported fever or chills. No nausea or vomiting. Tolerating oral feeding. No difficulty with breathing or chest pain. Maintain on IV Rocephin coverage. She remain on IV fluid support. Physical Exam Vital Signs: Temp Pulse Resp BP Pulse Ox 97.7 F 78 17 139/83 H 96 07/31/16 23:17 07/31/16 23:17 07/31/16 23:17 07/31/16 23:17 07/31/16 23:17 Intake & Output 07/31/16 08/01/16 08/02/16 06:59 06:59 06:59 Intake Total 1451 2991 Balance 1451 2991 General appearance: PRESENT: no acute distress, cooperative Head exam: PRESENT: atraumatic, normocephalic Eye exam: PRESENT: conjunctiva pink, EOMI, PERRLA Mouth exam: PRESENT: moist Respiratory exam: ABSENT: accessory muscle use, chest wall tenderness, clear to auscultation kim, crackles, decreased breath sounds, prolonged expiratory phas, rales, retraction, rhonchi, stridor, symmetrical, tachypnea, unlabored, wheezes , other Cardiovascular exam: PRESENT: RRR. ABSENT: diastolic murmur, rubs, systolic murmur GI/Abdominal exam: PRESENT: normal bowel sounds, soft. ABSENT: distended, guarding, mass, organolmegaly, rebound, tenderness Extremities exam: PRESENT: full ROM Musculoskeletal exam: PRESENT: full ROM, normal inspection Neurological exam: PRESENT: altered - due to developmental mental limitation Psychiatric exam: PRESENT: appropriate affect, normal mood Skin exam: PRESENT: dry, intact, warm. ABSENT: cyanosis, rash Results Laboratory Results: 07/31/16 04:11 07/31/16 04:11 Impressions: Chest X-Ray 07/31/16 00:00 IMPRESSION: NO ACUTE RADIOGRAPHIC FINDING IN THE CHEST. Assessment & Plan - Diagnosis (1) Fatigue Qualifiers: Fatigue type: unspecified Qualified Code(s): R53.83 - Other fatigue Is this a current diagnosis for this admission?: Yes (2) Pneumonia Qualifiers: Pneumonia type: due to unspecified organism Laterality: left Lung location: unspecified part of lung Qualified Code(s): J18.9 - Pneumonia, unspecified organism Is this a current diagnosis for this admission?: YesPlan: D/C IV Rocephin coverage after today's dose administration. (3) UTI (urinary tract infection) Qualifiers: Urinary tract infection type: acute cystitis Hematuria presence: without hematuria Qualified Code(s): N30.00 - Acute cystitis without hematuria Is this a current diagnosis for this admission?: Yes (4) HLD (hyperlipidemia) Is this a current diagnosis for this admission?: YesPlan: Continue current medication management. (5) HTN (hypertension) Is this a current diagnosis for this admission?: YesPlan: Continue current medication management. (6) Hypothyroid Qualifiers: Hypothyroidism type: acquired Qualified Code(s): E03.9 - Hypothyroidism, unspecified Is this a current diagnosis for this admission?: YesPlan: Continue current medication management. (7) Moderate mental retardation Is this a current diagnosis for this admission?: Yes (8) Hypokalemia due to loss of potassium Is this a current diagnosis for this admission?: YesPlan: Resolved after replacement therapy - Time Time Spent with patient: 25-34 minutes Medications reviewed and adjusted accordingly: Yes Anticipated discharge: Home - jail Within: within 24 hours - Inpatient Certification Medical Necessity: Need Close Monitoring Due to Risk of Patient Decompensation, Need For IV Fluids, Need for IV Antibiotics, Risk of Complication if Not Cared For in Hospital Post Hospital Care: D/C Nut Tightener Documentation - Plan Summary Plan Summary: D/C IV Rocephin after today's dose. Continue other current medication management.
[2016-08-01] MEDS: ATORVASTATIN CALCIUM 10 MG TABLET PO SCH (21:54)
[2016-08-02] MEDS: LANSOPRAZOLE 30 MG TAB.RAP.DR PO SCH (05:56)
[2016-08-02] MEDS: AMLODIPINE BESYLATE 2.5 MG TABLET PO SCH (09:15)
[2016-08-02] MEDS: LEVOTHYROXINE SODIUM 0.1 MG TABLET PO SCH (09:15)
[2016-08-02] MEDS: ENOXAPARIN SODIUM INJ 30 MG/0.3 ML DISP.SYRIN SUBCUT SCH (09:15)
[2016-08-02 12:10] VITALS: BP 133/90
--- NOTE | 2016-08-02 13:36 | PDOC DISCHARGE SUMMARY ---
General - Admit/Disc Date/PCP Admission Date/Primary Care Provider: 07/27/16 08:56 Discharge Date: 08/02/16 - Discharge Diagnosis (1) Fatigue Is this a current diagnosis for this admission?: Yes (2) Pneumonia Is this a current diagnosis for this admission?: Yes (3) UTI (urinary tract infection) Is this a current diagnosis for this admission?: Yes (4) HLD (hyperlipidemia) Is this a current diagnosis for this admission?: Yes (5) HTN (hypertension) Is this a current diagnosis for this admission?: Yes (6) Hypothyroid Is this a current diagnosis for this admission?: Yes (7) Moderate mental retardation Is this a current diagnosis for this admission?: Yes (8) Hypokalemia due to loss of potassium Is this a current diagnosis for this admission?: Yes - Additional Information Discharge Diet: Cardiac Discharge Activity: Activity As Tolerated Home Medications: Amlodipine Besylate [Norvasc 2.5 mg Tablet] 2.5 mg PO DAILY 07/27/16 Aspirin [Aspirin 81 mg Chewable Tablet] 81 mg PO DAILY 07/27/16 Calcium Carbonate [Os-Adolfo 500 mg Tablet (Oyster-Shell)] 500 mg PO BID 07/27/16 Cetirizine HCl [Zyrtec 10 mg Tablet] 10 mg PO DAILY 07/27/16 Levothyroxine Sodium [Synthroid 0.1 mg Tablet] 100 mcg PO DAILY 07/27/16 Omeprazole 20 mg PO DAILY 07/27/16 Propranolol HCl 80 mg PO QHS 07/27/16 Propranolol HCl [Inderal] 60 mg PO QAM 07/27/16 Rosuvastatin Calcium [Crestor 5 mg Tablet] 5 mg PO QHS 07/27/16 History of Present Illness History of Present Illness: JOSE PHILLIP is a 76 year old female resident at a local half[facility]way. She was brought to the ED by caregiver with listed complaints. shopper's aide reported few days of minimally productive cough with associated generalized weakness, increase sleepiness, poor appetite and oral intake. On the day of presentation patient had fever or 103F for which she received Tylenol at home. Her initial assessment in the ED was remarkable for episode of hypotension, hypoxemia and decrease breath sounds. There was associated abnormal urinalysis findings. In view of her presenting constellation and clinical findings patient was advised hospitalization for further evaluation and management. Hospital Course Hospital Course: Patient responded adequately to fluid resuscitation and antibiotic therapy. Her urine culture did grew E. coli sensitive to Ceftriaxone. Her blood culture grew Micrococcus species considered contamination. Patient had total 5 days of IV antibiotic therapy. Her pulmonary symptoms with regard to hypoxemia and productive cough did resolved since admission. P.O intake remain fairly satisfactory with meal time set up assistance. She will follow up in office as instructed upon discharge. Physical Exam Vital Signs: Temp Pulse Resp BP Pulse Ox 98.2 F 76 18 133/90 H 97 08/02/16 12:00 08/02/16 12:00 08/02/16 12:00 08/02/16 12:00 08/02/16 12:00 Intake & Output 08/01/16 08/02/16 08/03/16 06:59 06:59 06:59 Intake Total 2991 1258 Balance 2991 1258 General appearance: PRESENT: no acute distress, cooperative Eye exam: PRESENT: conjunctiva pink, EOMI, PERRLA Mouth exam: PRESENT: moist Neck exam: PRESENT: full ROM. ABSENT: carotid bruit, JVD, lymphadenopathy, thyromegaly Respiratory exam: ABSENT: accessory muscle use, chest wall tenderness, clear to auscultation kim, crackles, decreased breath sounds, prolonged expiratory phas, rales, retraction, rhonchi, stridor, symmetrical, tachypnea, unlabored, wheezes , other Cardiovascular exam: PRESENT: RRR. ABSENT: diastolic murmur, rubs, systolic murmur GI/Abdominal exam: PRESENT: normal bowel sounds, soft. ABSENT: distended, guarding, mass, organolmegaly, rebound, tenderness Extremities exam: PRESENT: full ROM Musculoskeletal exam: PRESENT: deformity - for joint arthritis involvement Neurological exam: PRESENT: altered - due to developmental limitation, awake Psychiatric exam: PRESENT: appropriate affect, normal mood. ABSENT: homicidal ideation, suicidal ideation Results Laboratory Results: 07/31/16 04:11 07/31/16 04:11 Impressions: Chest X-Ray 07/31/16 00:00 IMPRESSION: NO ACUTE RADIOGRAPHIC FINDING IN THE CHEST. Qualifiers PATEINT BEING DISCHARGED WITH ANY OF THE FOLLOWING DIAGNOSIS?: No Plan Discharge Plan: D/C to half-way today. Follow up in office as instructed upon discharge. Please see discharge orders for dietary instruction, activity level and post discharge care plan. Time Spent: Less than 30 Minutes
== END 2016-08-02 13:10 | disposition home health service (06) | DRG 194 ==
LOC: ER 22:19 → UNDOADMIN 07-27 02:13 → EH 07-27 02:13 → 4N 07-27 11:25
PROVIDERS: ADMIT Internal Medicine Geriatric Medicine; ATTEND Internal Medicine Geriatric Medicine
PROC: 3E0234Z Introduction of Serum, Toxoid and Vaccine into Muscle, Percutaneous Approach (ICD-10-PCS; principal; 2016-08-02)
DX: J18.9 Pneumonia, unspecified organism (principal); N39.0 Urinary tract infection, site not specified; E78.5 Hyperlipidemia, unspecified; I10 Essential (primary) hypertension; E10.9 Type 1 diabetes mellitus without complications; K21.9 Gastro-esophageal reflux disease without esophagitis; E87.6 Hypokalemia; I95.9 Hypotension, unspecified; E03.9 Hypothyroidism, unspecified; R53.83 Other fatigue; B96.20 Unspecified Escherichia coli [E. coli] as the cause of diseases classified elsewhere; F71 Moderate intellectual disabilities; Z23 Encounter for immunization; Z86.73 Personal history of transient ischemic attack (TIA), and cerebral infarction without residual deficits; Z79.82 Long term (current) use of aspirin
CPT/HCPCS: 36415; 51701; 71010; 80048; 80053; 81001; 82803; 82962; 83605; 83735; 85025; 85610; 85730; 87040; 87077; 87086; 87088; 87186; 90686; 93005; 93010; 96361; 96365; 96372; 99285; G8978-GP; G8979-GP; J0456; J0696; J1610; J1650; J3480; J3490; J7030; J7060

== ENCOUNTER → 2017-02-09 | Outpatient (CLI) | payer MEDICARE, MEDICAID ==
--- NOTE | 2017-02-09 13:36 | RADIOLOGY REPORT (SQ) ---
EXAM DESCRIPTION: CT CHEST WITH COMPLETED DATE/TIME: 02/09/2017 11:26 am REASON FOR STUDY: MALIGNANT MELANOMA OF RIGHT LOWER LIMB C43.71 MALIGNANT MELANOMA OF RIGHT LOWER L IMB, INCLUDING HIP COMPARISON: None. TECHNIQUE: CT scan of the chest performed using helical scanning technique with dynamic intravenous contrast injection. Images reviewed with lung, soft tissue and bone windows. Reconstructed coronal and sagittal MPR images reviewed. All images stored on PACS. All CT scanners at this facility use dose modulation, iterative reconstruction, and/or weight based d osing when appropriate to reduce radiation dose to as low as reasonably achievable (ALARA). [facility]: Dose Right [facility]: CareDose [facility]: Dose Right [facility]: Teradose 4D [facility]: [employer] CONTRAST TYPE AND DOSE: contrast/concentration: Isovue 370.00 mg/ml; Total Contrast Delivered: 74.0 ml; Total Saline Delivered: 39.3 ml RENAL FUNCTION: Creatinine 1.3. RADIATION DOSE: . LIMITATIONS: None. FINDINGS: LUNGS AND PLEURA: No opacities, nodules, masses. No pneumothorax. No effusions. HILAR AND MEDIASTINAL STRUCTURES: No identified masses or abnormal nodes. HEART AND VASCULAR STRUCTURES: No aneurysm or dissection. No central pulmonary emboli. No pericardi al effusion. HARDWARE: None in the chest. UPPER ABDOMEN: No significant findings. Limited exam. THYROID AND OTHER SOFT TISSUES: No masses. No adenopathy. BONES: No significant finding. OTHER: No other significant finding. IMPRESSION: NORMAL CT OF THE CHEST WITH IV CONTRAST. TECHNICAL DOCUMENTATION: JOB ID: [id number] Quality ID # [id number]: Final reports with documentation of one or more dose reduction techniques (e.g., Au tomated exposure control, adjustment of the mA and/or kV according to patient size, use of iterative reconstruction technique) 2010 [employer]- All Rights Reserved
--- NOTE | 2017-02-09 13:42 | RADIOLOGY REPORT (SQ) ---
EXAM DESCRIPTION: CT ABD/PELVIS WITH IV ONLY COMPLETED DATE/TIME: 02/09/2017 11:26 am REASON FOR STUDY: MALIGNANT MELANOMA OF RIGHT LOWER LIMB C43.71 MALIGNANT MELANOMA OF RIGHT LOWER L IMB, INCLUDING HIP COMPARISON: 01/31/2016 and 07/26/2015. TECHNIQUE: CT scan of the abdomen and pelvis performed using helical scanning technique with dynamic intravenous contrast injection. No oral contrast. Images reviewed with lung, soft tissue, and bone windows. Reconstructed coronal and sagittal MPR images reviewed. Delayed images for evaluation of the urinary system also acquired. All images stored on PACS. All CT scanners at this facility use dose modulation, iterative reconstruction, and/or weight based d osing when appropriate to reduce radiation dose to as low as reasonably achievable (ALARA). [facility]: Dose Right [facility]: CareDose [facility]: Dose Right [facility]: Teradose 4D [facility]: [employer] CONTRAST TYPE AND DOSE: 74 mL Isovue 370- low osmolar. RENAL FUNCTION: Creatinine 1.3. RADIATION DOSE: Up-to-date CT equipment and radiation dose reduction techniques were employed. CTDIv ol: 9.6 mGy. DLP: 467 mGy-cm.. LIMITATIONS: None. FINDINGS: LOWER CHEST: No significant findings. No nodules or infiltrates. LIVER: Normal size. No masses. No dilated ducts. SPLEEN: A normal spleen is not visualized. Again seen is lobulated soft tissue in the left upper alice drant, unchanged. PANCREAS: No masses. No significant calcifications. No adjacent inflammation or peripancreatic fluid collections. Pancreatic duct not dilated. GALLBLADDER: No identified stones by CT criteria. No inflammatory changes to suggest cholecystitis. ADRENAL GLANDS: No significant masses or asymmetry. RIGHT KIDNEY AND URETER: Stable lobulated contour. No solid masses. No significant calcifications. No hydronephrosis or hydroureter. LEFT KIDNEY AND URETER: Extremely atrophic. AORTA AND VESSELS: No aneurysm. No dissection. Renal arteries, SMA, celiac without stenosis. RETROPERITONEUM: No retroperitoneal adenopathy, hemorrhage or masses. BOWEL AND PERITONEAL CAVITY: No masses or inflammatory changes. No free fluid or peritoneal masses. APPENDIX: Not visualized. PELVIS: No mass. No free fluid. Small diverticulum in the dome of the bladder, possibly a urachal d iverticulum. ABDOMINAL WALL: No masses. No hernias. BONES: No significant or acute findings. OTHER: No other significant finding. IMPRESSION: 1. STABLE APPEARANCE OF THE KIDNEYS. MARKED SEVERE CHRONIC ATROPHY OF THE LEFT KIDNEY. STABLE LOBUL ATED APPEARANCE OF THE RIGHT KIDNEY. 2. STABLE FINDINGS IN THE LEFT UPPER QUADRANT RELATED TO THE SPLEEN. A NORMAL SPLEEN IS NOT PRESENT AND THERE IS STABLE LOBULATED SOFT TISSUE, PRESUMABLY REPRESENTING SPLENIC TISSUE. 3. SMALL DIVERTICULUM ON THE DOME OF THE BLADDER, POSSIBLY A URACHAL DIVERTICULUM. 4. NO OTHER SIGNIFICANT OR ACUTE FINDING IN THE ABDOMEN OR PELVIS ON CT SCAN WITH IV CONTRAST. NO EV IDENCE OF METASTATIC INVOLVEMENT IN THE ABDOMEN OR PELVIS. TECHNICAL DOCUMENTATION: JOB ID: [id number] Quality ID # [id number]: Final reports with documentation of one or more dose reduction techniques (e.g., Au tomated exposure control, adjustment of the mA and/or kV according to patient size, use of iterative reconstruction technique) 2010 [employer]- All Rights Reserved
== END ==
LOC: RAD 09:27
PROVIDERS: ATTEND Internal Medicine Medical Oncology
DX: C43.71 Malignant melanoma of right lower limb, including hip (principal)
CPT/HCPCS: 71260; 74177; 82565

== ENCOUNTER 2017-04-03 11:34 | Emergency (ER) | payer MEDICARE, MEDICAID ==
--- NOTE | 2017-04-03 12:13 | RADIOLOGY REPORT (SQ) ---
EXAM DESCRIPTION: CT HEAD WITHOUT COMPLETED DATE/TIME: 04/03/2017 11:58 am REASON FOR STUDY: t1 s/p fall hit head per MD Perez COMPARISON: None. TECHNIQUE: Axial images acquired through the brain without intravenous contrast. Images reviewed wi bone, brain and subdural windows. Images stored on PACS. All CT scanners at this facility use dose modulation, iterative reconstruction, and/or weight based d osing when appropriate to reduce radiation dose to as low as reasonably achievable (ALARA). [facility]: Dose Right [facility]: CareDose [facility]: Dose Right [facility]: Teradose 4D [facility]: [employer] RADIATION DOSE: Up-to-date CT equipment and radiation dose reduction techniques were employed. CTDIv ol: 64.6 mGy. DLP: 2843 mGy-cm. mGy. LIMITATIONS: None. FINDINGS: VENTRICLES: Normal size and contour, except for ex vacuo enlargement of the frontal horn o f left lateral ventricle. . CEREBRUM: No midline shift. No masses. No hemorrhage. 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 Few scattered areas of low density in th e white matter most likely chronic small vessel ischemic changes. CEREBELLUM: No masses. No hemorrhage. No alteration of density. No evidence for acute infarction. EXTRAAXIAL SPACES: No fluid collections. No masses. ORBITS AND GLOBE: No intra- or extraconal masses. Normal contour of globe without masses. CALVARIUM: No fracture. PARANASAL SINUSES: There is masslike opacification of the right maxillary sinus. SOFT TISSUES: There is a small midline frontal scalp hematoma. OTHER: No other significant finding. IMPRESSION: 1. MILD CHRONIC MICROVASCULAR ISCHEMIA. NO ACUTE IMAGING FINDINGS IN THE BRAIN. 2. RIGHT MAXILLARY SINUS DISEASE. EVIDENCE OF ACUTE STROKE: NO. COMMENT: Quality ID # [id number]: Final reports with documentation of one or more dose reduction techniques (e.g., Automated exposure control, adjustment of the mA and/or kV according to patient size, use of iterative reconstruction technique) TECHNICAL DOCUMENTATION: JOB ID: [id number] [employer]- All Rights Reserved
[2017-04-03] MEDS ORDERED: DIPH/PERTUSS(ACELL)/TETANUS VAC/PF 0.5 ML SYR (>=10YO) IM ONE ×2 (13:04→18:00)
[2017-04-03] MEDS ORDERED: LIDOCAINE 1%/EPINEPHRINE INJ 20 ML VIAL INJ ONE (13:05)
--- NOTE | 2017-04-03 13:06 | RADIOLOGY REPORT (SQ) ---
EXAM DESCRIPTION: CT CERVICAL SPINE WITHOUT COMPLETED DATE/TIME: 04/03/2017 11:58 am REASON FOR STUDY: t1 s/p fall hit head per md rodirguez COMPARISON: None. TECHNIQUE: Axial images acquired through the cervical spine without intravenous contrast. Images re viewed with lung, soft tissue and bone windows. Reconstructed coronal and sagittal MPR images review ed. Images stored on PACS. All CT scanners at this facility use dose modulation, iterative reconstruction, and/or weight based d osing when appropriate to reduce radiation dose to as low as reasonably achievable (ALARA). [facility]: Dose Right [facility]: CareDose [facility]: Dose Right [facility]: Teradose 4D [facility]: Smart CORD:USE Cord Blood [facility] RADIATION DOSE: Up-to-date CT equipment and radiation dose reduction techniques were employed. CTDIv ol: 27.7 mGy. DLP: 810 mGy-cm. mGy. LIMITATIONS: Motion FINDINGS: ALIGNMENT: Anatomic. MINERALIZATION: Normal. VERTEBRAL BODIES: No fractures or dislocation. There is marked bony overgrowth of lateral masses/fac ets at C1-2, left more than right. Degenerative joint changes seen at the articulation of the odonto id and the the occipital condyles are intact. Anterior arch of C1. DISCS: Degenerative disc changes are present most prominently at C5-6 and C6-7. There are anterior a nd anterolateral bridging osteophytes at these levels. FACETS, LATERAL MASSES, POSTERIOR ELEMENTS: See above. More mild facet overgrowth is seen at the oth er levels in the cervical spine. Once again left more than right. HARDWARE: None in the spine. VISUALIZED RIBS: No fractures. LUNG APICES AND SOFT TISSUES: No significant or acute findings. OTHER: No other significant finding. IMPRESSION: No obvious fracture. Severe degenerative changes as described. If there is a high inde x of suspicion of a fracture, consider repeating the study when the patient is more relaxed. TECHNICAL DOCUMENTATION: JOB ID: [id number] Quality ID # [id number]: Final reports with documentation of one or more dose reduction techniques (e.g., Au tomated exposure control, adjustment of the mA and/or kV according to patient size, use of iterative reconstruction technique) 2010 [email or web address]- All Rights Reserved
--- NOTE | 2017-04-03 13:09 | ER Document Report ---
ED Fall - General Chief Complaint: Fall Injury Stated Complaint: FALL:HEAD PAIN Time Seen by Provider: 04/03/17 12:53 Information source: Patient Notes: Patient is a very polite 76-year-old nonverbal patient who presents with her caregiver after the patient supposedly fell while walking from the dentist office. It was a witnessed fall. She fell forward. She did hit her face and head. No loss of consciousness. No vomiting. Unknown tetanus status. TRAVEL OUTSIDE OF THE [place] IN LAST 30 DAYS: No - HPI Occurred: Just prior to arrival Where: Outdoors Context: Tripped - Over a rock supposedly Associated symptoms: None Location of injury/pain: Head, Lower extremity Quality of pain: Dull Severity: Mild Pain Level: 1 Prehospital interventions: No: C-collar, Backboard - Related data Allergies/Adverse Reactions: No Known Allergies Allergy (Verified 10/14/13 11:38) Past Medical History - Social History Smoking Status: Never Smoker Cigarette use (# per day): No Chew tobacco use (# tins/day): No Smoking Education Provided: No Frequency of alcohol use: None Drug Abuse: None Family History: None - Past Medical History Cardiac Medical History: Reports: Hx Hypercholesterolemia, Hx Hypertension Denies: Hx Coronary Artery Disease, Hx Heart Attack Pulmonary Medical History: Denies: Hx Asthma, Hx Bronchitis, Hx COPD, Hx Pneumonia Neurological Medical History: Reports: Hx Cerebrovascular Accident. Denies: Hx Seizures Endocrine Medical History: Reports: Hx Diabetes Mellitus Type 1 Renal/ Medical History: Denies: Hx Peritoneal Dialysis Malignancy Medical History: Reports: Hx Skin Cancer GI Medical History: Reports: Hx Gastroesophageal Reflux Disease Musculoskeltal Medical History: Denies Hx Arthritis Past Surgical History: Reports: Hx Hysterectomy - Immunizations Hx Diphtheria, Pertussis, Tetanus Vaccination: Yes Hx Pneumococcal Vaccination: 03/16/10 Review of Systems - Review of Systems -: Yes ROS unobtainable due to patient's medical condition Physical Exam - Vital signs Vitals: Temp Pulse Resp BP Pulse Ox 97.1 F 43 L 18 133/91 H 91 L 04/03/17 13:34 04/03/17 13:34 04/03/17 13:34 04/03/17 13:34 04/03/17 13:34 Notes: Reviewed vital signs and nursing note as charted by RN. CONSTITUTIONAL: Alert, smiling in no acute distress. Patient does follow commands HEAD: Patient has a small abrasion to the forehead and to the tip of her nose. Midface is stable. Dentition is intact EYES: PERRL; full extraocular range of motion ENT: Midface stable. Dentition is intact NECK: Supple without meningismus; non-tender; no cervical lymphadenopathy, no masses CARD: Regular rate and rhythm; no murmurs RESP: Normal chest excursion without splinting or tachypnea; breath sounds clear and equal bilaterally ABD/GI: Normal bowel sounds; non-distended; soft, non-tender BACK: The back appears normal and is non-tender to palpation EXT: Normal ROM in all joints; patient has bruising to bilateral shins with a large laceration to the right mid irene SKIN: The above NEURO: Moves all extremities equally; neurovascularly intact to bilateral distal lower extremities with excellent pulses, sensation, and toe movement PSYCH: The patient's mood and manner are appropriate. Grooming and personal hygiene are appropriate. Course - Re-evaluation Re-evalutation: 04/03/17 13:09 Given the above history and physical examination we will order CT scan of the head, cervical spine, and an x-ray of bilateral shins. We will update the patient's tetanus status. 04/03/17 14:36 CT scan of the head and cervical spine as recorded. Bilateral x-rays of the tibia/fibula show what appears to be an old distal left fibula fracture. Patient has no tenderness or wincing to compression of the distal fibula. Patient's creatinine is 1.44. Patient has had no vomiting. I will provide a liter of fluid here at this facility with strict return precautions and have instructed to the sustainable systems analyst that the patient requires a repeat chemistry. Tetanus has been updated. I will suture the laceration of the right lower leg at this time. - Vital Signs Vital signs: Temp Pulse Resp BP Pulse Ox 97.1 F 43 L 18 133/91 H 91 L 04/03/17 13:34 04/03/17 13:34 04/03/17 13:34 04/03/17 13:34 04/03/17 13:34 - Laboratory Result Diagrams: 04/03/17 13:50 04/03/17 13:50 Laboratory results interpreted by me: 04/03/17 04/03/17 13:50 13:50 RDW 14.5 H Monocytes % 14.0 H Potassium 5.1 H BUN 25 H Creatinine 1.44 H Est GFR ( Amer) 43 L Est GFR (Non-Af Amer) 35 L Calcium 10.4 H Procedures - Laceration/Wound Repair Right Leg Wound length (cm): 7 Wound's Depth, Shape: Flap Laceration pre-procedure: Chloraprep applied Anesthetic type: 1% Lidocaine w/epi Volume Anesthetic (mLs): 8 Wound explored: Clean Irrigated w/ Saline (mLs): 1,000 Wound Debrided: Minimal Wound Repaired With: Sutures Suture Size/Type: 3:0, Other Number of Sutures: 8 Layer Closure?: No Post-procedure NV exam normal: Yes Complications: No Discharge - Discharge Clinical Impression: Accidental fall, Closed head injury, Laceration of right leg excluding thigh, Contusion of leg, multiple sites, Renal insufficiency Condition: Good Disposition: HOME, SELF-CARE Additional Instructions: Please keep the areas of her laceration and abrasions clean dry and intact and apply bacitracin to the lesions twice daily. Please make sure that she bring the patient back immediately with any swelling, redness around the wounds, discharge from the wounds, fever, or vomiting. Please make sure that you have the patient's chemistry checked in 1 week and keep her well hydrated as her creatinine is 1.4 today. Patient should return in 14 days for suture removal. Referrals: DAYANARA RICHARD MD [Primary Care Provider] - Follow up as needed
--- NOTE | 2017-04-03 13:54 | RADIOLOGY REPORT (SQ) ---
EXAM DESCRIPTION: TIB FIB BILAT 2 VIEWS COMPLETED DATE/TIME: 04/03/2017 1:38 pm REASON FOR STUDY: TR1, fall COMPARISON: None. NUMBER OF VIEWS: Two views. TECHNIQUE: Two radiographic images acquired of the left tibia and fibula to include the knee and ank le in at least one projection. LIMITATIONS: None. FINDINGS: MINERALIZATION: Normal. BONES: Irregularity of the distal fibula. Remainder of the visualized bony structures are intact. SOFT TISSUES: Soft tissue defect. No foreign body. OTHER: No other significant finding. IMPRESSION: 1. SOFT TISSUE DEFECT. NO FOREIGN BODY. NO UNDERLYING BONY FINDINGS. 2. IRREGULARITY OF THE DISTAL FIBULA WHICH MAY BE RELATED TO OLD TRAUMA ALTHOUGH NONDISPLACED FRACTUR E CANNOT BE EXCLUDED. IF THE PATIENT IS SYMPTOMATIC, THEN FOLLOW-UP X-RAY OF THE ANKLE MAY PROVIDE B ESTEFANI VISUALIZATION. TECHNICAL DOCUMENTATION: JOB ID: [id number] [employer]- All Rights Reserved
--- NOTE | 2017-04-03 13:54 | RADIOLOGY REPORT (SQ) ---
EXAM DESCRIPTION: PELVIS AP COMPLETED DATE/TIME: 04/03/2017 1:38 pm REASON FOR STUDY: tr1, fall COMPARISON: None. NUMBER OF VIEWS: One view TECHNIQUE: AP Pelvis LIMITATIONS: None. FINDINGS: MINERALIZATION: Normal. HIPS: No acute fracture or dislocation. No worrisome bone lesions. PELVIS AND SACRUM: No acute fracture or dislocation. No worrisome bone lesions. PUBIS AND ISCHIUM: No acute fracture. LOWER LUMBAR SPINE: No significant findings as visualized. SOFT TISSUES: No findings. OTHER: No other significant finding. IMPRESSION: NEGATIVE STUDY OF THE PELVIS. TECHNICAL DOCUMENTATION: JOB ID: [id number] [employer]- All Rights Reserved
[2017-04-03 14:00] LABS: ABSOLUTE LYMPHOCYTES (AUTO) 1.5 10^3/uL (0.5-4.7); ABSOLUTE MONOCYTES (AUTO) 0.7 10^3/uL (0.1-1.4); ABSOLUTE NEUT (AUTO) 2.9 10^3/uL (1.7-8.2); BASOPHILS % (AUTO) 0.8 % (0-2); EOSINOPHILS % (AUTO) 0.5 % (0-6); HEMATOCRIT 40.8 % (36.0-47.0); HEMOGLOBIN 13.8 g/dL (12.0-15.5); HGB HCT DIFFERENCE 0.6; LYMPHOCYTES % (AUTO) 29.5 % (13-45); MEAN CORPUSCULAR HGB CONC 33.9 g/dL (32.0-36.0); MEAN CORPUSCULAR VOLUME 92 fl (80-97); RED BLOOD COUNT 4.45 10^6/uL (3.72-5.28); RED CELL DISTRIBUTION WIDTH 14.5 % (11.5-14.0); SEGMENTED NEUTROPHILS % (AUTO) 55.2 % (42-78); WHITE BLOOD COUNT 5.2 10^3/uL (4.0-10.5)
[2017-04-03 14:24] LABS: ANION GAP 12 (5-19); BLOOD UREA NITROGEN 25 mg/dL (7-20); CALCIUM 10.4 mg/dL (8.4-10.2); CARBON DIOXIDE 30 mmol/L (22-30); CHLORIDE 99 mmol/L (98-107); CREATININE RESULT 1.44 mg/dL (0.52-1.25); GLUCOSE 100 mg/dL (75-110); POTASSIUM 5.1 mmol/L (3.6-5.0); SODIUM 140.8 mmol/L (137-145)
[2017-04-03] MEDS ORDERED: NORMAL SALINE 1000 ML 1,000 ML IV ONE (14:34)
[2017-04-03 17:32] VITALS: BP 149/52
== END 2017-04-03 17:45 | disposition home or self-care (01) ==
LOC: ER 11:34
PROC: 0HQKXZZ Repair Right Lower Leg Skin, External Approach (ICD-10-PCS; principal; 2017-04-03)
DX: S09.90XA Unspecified injury of head, initial encounter (principal); S81.811A Laceration without foreign body, right lower leg, initial encounter; S80.12XA Contusion of left lower leg, initial encounter; S80.11XA Contusion of right lower leg, initial encounter; W01.0XXA Fall on same level from slipping, tripping and stumbling without subsequent striking against object, initial encounter; Y92.531 Health care provider office as the place of occurrence of the external cause; Z23 Encounter for immunization; E78.00 Pure hypercholesterolemia, unspecified; I10 Essential (primary) hypertension; E10.9 Type 1 diabetes mellitus without complications; K21.9 Gastro-esophageal reflux disease without esophagitis; Z86.73 Personal history of transient ischemic attack (TIA), and cerebral infarction without residual deficits; Z90.710 Acquired absence of both cervix and uterus
CPT/HCPCS: 99284; 90471; 36415; 85025; 80048; 72170; 73590; 70450; 72125; 90715; 12002; J3490; J7030

== ENCOUNTER 2017-04-13 08:50 | Emergency (ER) | payer MEDICARE, MEDICAID ==
--- NOTE | 2017-04-13 09:01 | ER Document Report ---
HPI - HPI Patient complains to provider of: right lower leg sutures to be removed Onset: Other - 10 days ago Context: 76 yo female with MR/CVA here for suture removal right anterior lower leg placed in ER 10 days ago. No fever. Mild swelling and pink surrounding tissue. Associated Symptoms: None Exacerbated by: Denies Relieved by: Denies - ROS ROS below otherwise negative: Yes Systems Reviewed and Negative: Yes All other systems reviewed and negative - REPRODUCTIVE Reproductive: DENIES: : Past Medical History - General Information source: Legal Guardian - healthcare financial analyst - Social History Smoking Status: Never Smoker Frequency of alcohol use: None Drug Abuse: None Lives with: Custodial Family History: None - Past Medical History Cardiac Medical History: Reports: Hx Hypercholesterolemia, Hx Hypertension Neurological Medical History: Reports: Hx Cerebrovascular Accident Endocrine Medical History: Reports: Hx Diabetes Mellitus Type 1 Renal/ Medical History: Denies: Hx Peritoneal Dialysis Malignancy Medical History: Reports: Hx Skin Cancer GI Medical History: Reports: Hx Gastroesophageal Reflux Disease Past Surgical History: Reports: Hx Hysterectomy - Immunizations Hx Diphtheria, Pertussis, Tetanus Vaccination: Yes Hx Pneumococcal Vaccination: 03/16/10 Vertical Provider Document - CONSTITUTIONAL Agree With Documented VS: Yes Exam Limitations: No Limitations General Appearance: No Apparent Distress - INFECTION CONTROL TRAVEL OUTSIDE OF THE [place] IN LAST 30 DAYS: No - HEENT HEENT: Normocephalic - MUSCULOSKELETAL/EXTREMETIES Musculoskeletal/Extremeties: ERNESTO BAHENA - NEURO Level of Consciousness: Awake, Alert, Non-Verbal - DERM Integumentary: Laceration - see above Discharge - Discharge Clinical Impression: Suture removal, Steri-Strip placement Condition: Good Disposition: HOME, SELF-CARE Instructions: Care of Steri-Strip Closure ([facility]), Suture Removal Additional Instructions: let the steri strips fall off on own to er any concerns Please complete the patient satisfaction survey if you get one, and return it.. If you do not receive a survey, then you can go to the [facility] website, [email or web address] and place your comments about your very good care. Thank you very much. It was a pleasure being your medical provider today.
[2017-04-13 09:02] VITALS: BP 116/88
== END 2017-04-13 09:19 | disposition home or self-care (01) ==
LOC: ER 08:50
DX: S81.811D Laceration without foreign body, right lower leg, subsequent encounter (principal); X58.XXXD Exposure to other specified factors, subsequent encounter; I10 Essential (primary) hypertension; E10.9 Type 1 diabetes mellitus without complications; Z85.828 Personal history of other malignant neoplasm of skin

== ENCOUNTER → 2017-05-28 | Outpatient (CLI) | payer MEDICARE, MEDICAID ==
[2017-05-28 12:39] LABS: FREE T3 2.16 pg/mL (2.77-5.27)
[2017-05-28 12:53] LABS: THYROID STIMULATING HORMONE 6.5 uIU/mL (0.47-4.68)
== END ==
LOC: OD 10:28
PROVIDERS: ATTEND Internal Medicine Geriatric Medicine
DX: E03.9 Hypothyroidism, unspecified (principal)
CPT/HCPCS: 36415; 84439; 84443; 84481

== ENCOUNTER 2017-08-14 08:54 | Emergency (ER) | payer MEDICARE, MEDICAID ==
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
--- NOTE | 2017-08-14 11:31 | RADIOLOGY REPORT (SQ) ---
EXAM DESCRIPTION: HAND LEFT 3 VIEWS COMPLETED DATE/TIME: 08/14/2017 10:45 am REASON FOR STUDY: hand swelling COMPARISON: Right hand three views 08/22/2014 EXAM PARAMETERS: NUMBER OF VIEWS: Three views. TECHNIQUE: AP, lateral and oblique radiographic images acquired of the left hand. LIMITATIONS: None. FINDINGS: MINERALIZATION: Normal. BONES: No acute fracture or dislocation. Anatomic variant, with conjoined lunate and triquetrum. JOINTS: Joint space narrowing and mild osteophyte formation at the 1st carpometacarpal joint. Negative ulnar variance with mild bony spurring at the distal radioulnar joint. SOFT TISSUES: Diffuse dorsal hand soft tissue swelling. No foreign body. OTHER: No other significant finding. IMPRESSION: Diffuse dorsal hand soft tissue swelling. No acute fracture. No radiopaque foreign bod y TECHNICAL DOCUMENTATION: JOB ID: [id number] [employer]- All Rights Reserved
[2017-08-14 12:20] VITALS: BP 102/50
== END 2017-08-14 12:14 | disposition home or self-care (01) ==
LOC: ER 08:54
DX: S63.92XA Sprain of unspecified part of left wrist and hand, initial encounter (principal); M79.89 Other specified soft tissue disorders; Y04.0XXA Assault by unarmed brawl or fight, initial encounter
CPT/HCPCS: 99283

== ENCOUNTER 2017-08-27 10:44 | Emergency (ER) | payer MEDICARE, MEDICAID ==
--- NOTE | 2017-08-27 11:22 | ER Document Report ---
ED Medical Screen (RME) - General Chief Complaint: Decreased Appetite Stated Complaint: COUGH Time Seen by Provider: 08/27/17 11:16 Notes: Patient is nonverbal. She is brought from a boarding care facility. Staff member state the patient has been less responsive today, has had an increased cough, and decreased appetite. At initial triage patient was noted to have disparity between the 2 arms and blood pressures were taken. On my reexamination there was some disparity but not as marked as on initial triage. bp for me was 138/105 left, right 124/85. Patient does not appear to be in any pain. No vomiting or diarrhea. TRAVEL OUTSIDE OF THE [place] IN LAST 30 DAYS: No - Related Data Allergies/Adverse Reactions: No Known Allergies Allergy (Verified 08/14/17 08:57) Past Medical History - Past Medical History Cardiac Medical History: Reports: Hx Hypercholesterolemia, Hx Hypertension Denies: Hx Coronary Artery Disease, Hx Heart Attack Pulmonary Medical History: Denies: Hx Asthma, Hx Bronchitis, Hx COPD, Hx Pneumonia Neurological Medical History: Reports: Hx Cerebrovascular Accident. Denies: Hx Seizures Renal/ Medical History: Reports: Hx Renal Insufficiency. Denies: Hx Peritoneal Dialysis Malignancy Medical History: Reports: Hx Skin Cancer GI Medical History: Reports: Hx Gastroesophageal Reflux Disease Musculoskeltal Medical History: Denies Hx Arthritis Past Surgical History: Reports: Hx Hysterectomy - Immunizations Hx Diphtheria, Pertussis, Tetanus Vaccination: Yes Physical Exam - Vital signs Vitals: Pulse Resp BP Pulse Ox 56 L 20 134/87 H 94 08/27/17 11:03 08/27/17 11:03 08/27/17 11:03 08/27/17 11:03 Course - Vital Signs Vital signs: Temp Pulse Resp BP Pulse Ox 56 L 20 124/85 94 08/27/17 11:03 08/27/17 11:03 08/27/17 11:15 08/27/17 11:03
[2017-08-27 12:52] LABS: ABSOLUTE LYMPHOCYTES (AUTO) 1.4 10^3/uL (0.5-4.7); ABSOLUTE MONOCYTES (AUTO) 0.4 10^3/uL (0.1-1.4); ABSOLUTE NEUT (AUTO) 1.4 10^3/uL (1.7-8.2); BASOPHILS % (AUTO) 0.4 % (0-2); EOSINOPHILS % (AUTO) 0.3 % (0-6); HEMATOCRIT 41.9 % (36.0-47.0); LYMPHOCYTES % (AUTO) 42.8 % (13-45); MEAN CORPUSCULAR HGB CONC 33.3 g/dL (32.0-36.0); MEAN CORPUSCULAR VOLUME 90 fl (80-97); MONOCYTES % (AUTO) 12.5 % (3-13); PLATELET COUNT 189 10^3/uL (150-450); RED BLOOD COUNT 4.65 10^6/uL (3.72-5.28); RED CELL DISTRIBUTION WIDTH 14.4 % (11.5-14.0); TOTAL CELLS COUNTED % (AUTO) 100 %; WHITE BLOOD COUNT 3.3 10^3/uL (4.0-10.5)
--- NOTE | 2017-08-27 13:03 | RADIOLOGY REPORT (SQ) ---
EXAM DESCRIPTION: CHEST PA/LAT COMPLETED DATE/TIME: 08/27/2017 12:18 pm REASON FOR STUDY: cough COMPARISON: 05/02/2014 EXAM PARAMETERS: NUMBER OF VIEWS: two views TECHNIQUE: Digital Frontal and Lateral radiographic views of the chest acquired. RADIATION DOSE: NA LIMITATIONS: none FINDINGS: LUNGS AND PLEURA: No opacities, masses or pneumothorax. No pleural effusion. MEDIASTINUM AND HILAR STRUCTURES: No masses or contour abnormalities. HEART AND VASCULAR STRUCTURES: Heart normal size. No evidence for failure. BONES: No acute findings. Old posttraumatic changes involving the left shoulder. Moderate degenerat jordan changes involving the thoracic spine. HARDWARE: None in the chest. OTHER: AP view is miss marked as to left and right. IMPRESSION: No evidence of acute cardiopulmonary disease. TECHNICAL DOCUMENTATION: JOB ID: [id number] [employer]- All Rights Reserved
[2017-08-27 13:09] LABS: ALANINE AMINOTRANSFERASE 26 U/L (9-52); ALBUMIN 4.7 g/dL (3.5-5.0); ALKALINE PHOSPHATASE 129 U/L (38-126); ANION GAP 12 (5-19); ASPARTATE AMINO TRANSFERASE 23 U/L (14-36); BILIRUBIN,DIRECT 0.2 mg/dL (0.0-0.4); BILIRUBIN,TOTAL 0.5 mg/dL (0.2-1.3); BLOOD UREA NITROGEN 21 mg/dL (7-20); CALCIUM 11.4 mg/dL (8.4-10.2); CARBON DIOXIDE 30 mmol/L (22-30); CHLORIDE 101 mmol/L (98-107); GLUCOSE 92 mg/dL (75-110); POTASSIUM 5.1 mmol/L (3.6-5.0); SODIUM 143.1 mmol/L (137-145); TOTAL PROTEIN 8.1 g/dL (6.3-8.2)
[2017-08-27] MEDS ORDERED: IPRATROPIUM/ALBUTEROL 0.5-2.5 MG/3 ML AMPUL NEB ONE (14:41)
--- NOTE | 2017-08-27 14:44 | ER Document Report ---
ED General - General Chief Complaint: Decreased Appetite Stated Complaint: COUGH Time Seen by Provider: 08/27/17 11:16 Mode of Arrival: Stretcher Information source: Legal Guardian Notes: This is a 77-year-old nonverbal female who is a resident of a custodial brought in because of wheezing, cough, poor appetite for the past 2 days. TRAVEL OUTSIDE OF THE [place] IN LAST 30 DAYS: No - HPI Onset: Last week Onset/Duration: Gradual Quality of pain: No pain Severity: None Pain Level: Denies Associated symptoms: Nonproductive cough, Shortness of breath. denies: Fever, Nausea, Vomiting Exacerbated by: Denies Relieved by: Denies Similar symptoms previously: Yes Recently seen / treated by doctor: Yes - Related Data Allergies/Adverse Reactions: No Known Allergies Allergy (Verified 08/14/17 08:57) Past Medical History - General Information source: Patient - Social History Smoking Status: Never Smoker Cigarette use (# per day): No Chew tobacco use (# tins/day): No Frequency of alcohol use: None Drug Abuse: None Lives with: Residential Family History: None Patient has suicidal ideation: No Patient has homicidal ideation: No - Past Medical History Cardiac Medical History: Reports: Hx Hypercholesterolemia, Hx Hypertension Denies: Hx Coronary Artery Disease, Hx Heart Attack Pulmonary Medical History: Denies: Hx Asthma, Hx Bronchitis, Hx COPD, Hx Pneumonia Neurological Medical History: Reports: Hx Cerebrovascular Accident. Denies: Hx Seizures Renal/ Medical History: Reports: Hx Renal Insufficiency. Denies: Hx Peritoneal Dialysis Malignancy Medical History: Reports: Hx Skin Cancer GI Medical History: Reports: Hx Gastroesophageal Reflux Disease Musculoskeltal Medical History: Denies Hx Arthritis Past Surgical History: Reports: Hx Hysterectomy - Immunizations Hx Diphtheria, Pertussis, Tetanus Vaccination: Yes Hx Pneumococcal Vaccination: 03/16/10 Review of Systems - Review of Systems Notes: Review of systems: Constitutional: Denies fever, chills. EENT: Denies ear pain, sinus tenderness, throat pain, throat swelling. Cardiovascular: Denies chest pain, palpitations, dyspnea or edema. Respiratory: See H&P Abdomen: Denies abdominal pain, nausea, vomiting, diarrhea. Denies BRBPR or melena. Genitourinary: Denies dysuria, pyuria, hematuria, flank pain. Musculoskeletal: denies joint pain or swelling, denies back pain. Neurologic: Denies headache, photophobia, neck stiffness, weakness. Denies loss of bowel or bladder function. Denies saddle anesthesia. Skin: Denies rash, lesions. Physical Exam - Vital signs Vitals: Pulse Resp BP Pulse Ox 56 L 20 134/87 H 94 08/27/17 11:03 08/27/17 11:03 08/27/17 11:03 08/27/17 11:03 Notes: Physical exam: GENERAL: 77-year-old female, no acute disease HEAD: Atraumatic, normocephalic. EYES: Pupils equal round and reactive to light, extraocular movements intact, sclera anicteric, conjunctiva are normal. ENT: TMs normal, nares patent, oropharynx clear without exudates. Moist mucous membranes. NECK: Normal range of motion, supple without obvious mass or JVD. LUNGS: Bilateral wheezing and rhonchi HEART: Regular rate and rhythm without murmurs, rubs or gallops. ABDOMEN: Soft, normoactive bowel sounds. No tenderness to palpation. No guarding, no rebound. No masses appreciated. EXTREMITIES: Normal range of motion, no pitting or edema. No clubbing or cyanosis. NEUROLOGICAL: Cranial nerves II through XII grossly intact. Normal speech, moving all extremities. PSYCH: Normal mood, normal affect. SKIN: Warm, Dry, normal turgor, no rashes or lesions noted. Course - Vital Signs Vital signs: Temp Pulse Resp BP Pulse Ox 62 20 147/85 H 96 08/27/17 18:24 08/27/17 18:24 08/27/17 18:24 08/27/17 18:24 - Laboratory Result Diagrams: 08/27/17 12:37 08/27/17 12:37 Laboratory results interpreted by me: 08/27/17 08/27/17 12:37 12:37 WBC 3.3 L RDW 14.4 H Absolute Neutrophils 1.4 L Potassium 5.1 H BUN 21 H Creatinine 1.41 H Est GFR ( Amer) 44 L Est GFR (Non-Af Amer) 36 L Calcium 11.4 H Alkaline Phosphatase 129 H - Diagnostic Test Radiology reviewed: Image reviewed, Reports reviewed - No obvious infiltrates - EKG Interpretation by Me Rate: Normal - Chest x-ray shows sinus bradycardia with a ventricular rate of 54 , no acute ST-T wave changes Rhythm: NSR Discharge - Discharge Clinical Impression: URI Condition: Stable Disposition: HOME, SELF-CARE Instructions: Upper Respiratory Illness ([facility]) Additional Instructions: As we discussed, Miss Muñoz's chest x-ray looked good and there was no evidence of pneumonia. We will give her treatment just in case she has influenza (this is a possibility ). Ms. Muñoz's labs were all normal. Use the inhaler: 2 puffs every 4-6 hours for cough or wheezing. This sometimes helps with the symptoms. Take the Tamiflu as prescribed: Next dose in the morning (she was given this evening's dose in the ER). Follow-up with Dr. Richard (I did discuss today's labs with him). Return to the emergency room for worsening shortness of breath Prescriptions: Oseltamivir Phosphate [Tamiflu 75 mg Capsule] 75 mg PO BID #9 capsule Referrals: DAYANARA RICHARD MD [Primary Care Provider] - Follow up as needed
--- NOTE | 2017-08-27 15:20 | EKG REPORT ---
SEVERITY:- NORMAL ECG - SINUS RHYTHM : Confirmed by: Reyes Ann 27-Aug-2017 15:19:27
[2017-08-27] MEDS ORDERED: OSELTAMIVIR PHOSPHATE 75 MG CAPSULE PO ONE (16:37)
[2017-08-27] MEDS ORDERED: ALBUTEROL SULFATE HFA (90 MCG/PUFF) 8 GM MDI (1 MDI/ER DISP) IH PRN (18:21)
[2017-08-27 18:26] VITALS: BP 147/85
== END 2017-08-27 18:35 | disposition home or self-care (01) ==
LOC: ER 10:44
DX: J06.9 Acute upper respiratory infection, unspecified (principal); R63.0 Anorexia; R05 Cough; R06.2 Wheezing
CPT/HCPCS: 93005; 94640; 99283; 36415; 85025; 80053; 71046; 93010; A9270 ×2; J3490; J7620

== ENCOUNTER 2017-10-15 10:10 | Emergency (ER) | payer MEDICAID, MEDICARE ==
[2017-10-15 10:19] VITALS: BP 101/84
[2017-10-15] MEDS ORDERED: LIDOCAINE 1% INJ-PF (10 MG/ML) 30 ML SDV INJ ONE (10:26)
--- NOTE | 2017-10-15 10:27 | ER Document Report ---
ED Medical Screen (RME) - General Chief Complaint: Laceration Stated Complaint: FALL/HEAD LACERATION Time Seen by Provider: 10/15/17 10:26 TRAVEL OUTSIDE OF THE [place] IN LAST 30 DAYS: No - HPI Notes: 10/15/17 10:26 Unwitnessed fall that caused a head laceration requiring sutures - Related Data Allergies/Adverse Reactions: No Known Allergies Allergy (Verified 10/15/17 10:12) Past Medical History - Past Medical History Cardiac Medical History: Reports: Hx Hypercholesterolemia, Hx Hypertension Denies: Hx Coronary Artery Disease, Hx Heart Attack Pulmonary Medical History: Denies: Hx Asthma, Hx Bronchitis, Hx COPD, Hx Pneumonia Neurological Medical History: Reports: Hx Cerebrovascular Accident. Denies: Hx Seizures Renal/ Medical History: Reports: Hx Renal Insufficiency. Denies: Hx Peritoneal Dialysis Malignancy Medical History: Reports: Hx Skin Cancer GI Medical History: Reports: Hx Gastroesophageal Reflux Disease Musculoskeltal Medical History: Denies Hx Arthritis Past Surgical History: Reports: Hx Hysterectomy - Immunizations Hx Diphtheria, Pertussis, Tetanus Vaccination: Yes Review of Systems - Review of Systems Constitutional: Other - Head laceration Physical Exam - Vital signs Vitals: Pulse Resp BP Pulse Ox 50 L 16 101/84 99 10/15/17 10:18 10/15/17 10:18 10/15/17 10:18 10/15/17 10:18 - HEENT Head: Other - Patient with a forehead laceration gaping Course - Re-evaluation Re-evalutation: 10/15/17 10:27 I have greeted and performed a rapid initial assessment of this patient. A comprehensive ED assessment and evaluation of the patient, analysis of test results and completion of the medical decision making process will be conducted by additional ED providers. - Vital Signs Vital signs: Temp Pulse Resp BP Pulse Ox 50 L 16 101/84 99 10/15/17 10:18 10/15/17 10:18 10/15/17 10:18 10/15/17 10:18
--- NOTE | 2017-10-15 11:12 | RADIOLOGY REPORT (SQ) ---
EXAM DESCRIPTION: CT HEAD WITHOUT COMPLETED DATE/TIME: 10/15/2017 10:46 am REASON FOR STUDY: fall COMPARISON: 04/03/2017 TECHNIQUE: Axial images acquired through the brain without intravenous contrast. Images reviewed wi th bone, brain and subdural windows. Additional sagittal and coronal reconstructions were generated. Images stored on PACS. All CT scanners at this facility use dose modulation, iterative reconstruction, and/or weight based d osing when appropriate to reduce radiation dose to as low as reasonably achievable (ALARA). [facility]: Dose Right [facility]: CareDose [facility]: Dose Right [facility]: Teradose 4D [facility]: [employer] RADIATION DOSE: CT Rad equipment meets quality standard of care and radiation dose reduction techniq ues were employed. CTDIvol: 53.2 mGy. DLP: 964 mGy-cm. mGy. LIMITATIONS: None. FINDINGS: VENTRICLES: Stable asymmetric prominence of the left lateral ventricle. The cisterns are patent. CEREBRUM: Chronic small vessel ischemic changes. Remote old left lacunes. No hemorrhage. No midli ne shift. No evidence for acute infarction. CEREBELLUM: No masses. No hemorrhage. No alteration of density. No evidence for acute infarction. EXTRAAXIAL SPACES: No fluid collections. No masses. ORBITS AND GLOBE: Age-related involutional change. No intra- or extraconal masses. Normal contour of globe without masses. CALVARIUM: No fracture. Hyperostosis frontalis interna, normal anatomic variant. PARANASAL SINUSES: Stable homogeneous opacification of the right maxillary sinus. Homogeneous opaci fication of the right frontal sinus and inhomogeneous opacification of the right ethmoid sinus. The right sinus drainage pathway is occluded. The left drainage pathway is clear. SOFT TISSUES: Mild soft tissue swelling in the right frontal scalp region. OTHER: Atherosclerotic changes involving the intracranial portion of the left vertebral artery. Deg enerative changes involve the visualized upper cervical spine. IMPRESSION: 1 No significant interval change since the prior examination dated 04/03/2017. No acute intracranial abnormality. 2. Chronic small vessel ischemic changes and old remote left lacunes. 3. No acute osseous findings. 4. Stable chronic right maxillary sinus disease. Chronic right frontal and right ethmoid sinus disea se. EVIDENCE OF ACUTE STROKE: NO COMMENT: Quality ID # [id number]: Final reports with documentation of one or more dose reduction techniques (e.g., Automated exposure control, adjustment of the mA and/or kV according to patient size, use of iterative reconstruction technique) TECHNICAL DOCUMENTATION: JOB ID: [id number] [employer]- All Rights Reserved Reading location - IP/workstation name: [email or web address]
[2017-10-15] MEDS ORDERED: DIPH/PERTUSS(ACELL)/TETANUS VAC/PF 0.5 ML SYR (>=10YO) IM ONE (12:12)
[2017-10-15] MEDS ORDERED: ACETAMINOPHEN 325 MG TABLET PO ONE (12:12)
--- NOTE | 2017-10-15 12:14 | ER Document Report ---
ED Fall - General Chief Complaint: Laceration Stated Complaint: FALL/HEAD LACERATION Time Seen by Provider: 10/15/17 10:26 Mode of Arrival: Wheelchair Information source: Outside Facility Records Notes: 77-year-old female presented to ED for laceration to face she is a resident and a sister living and was found in the shower after falling hitting her head. Her CT does not show any acute changes. Patient is not on a blood thinner except for aspirin once a day. TRAVEL OUTSIDE OF THE [place] IN LAST 30 DAYS: No - HPI Occurred: This morning Where: Indoors, [facility] Context: Slipped - Found on the bathroom floor staff stated that she slipped and fell Associated symptoms: None Location of injury/pain: Face Quality of pain: No pain Severity: None Pain Level: Denies - Related data Allergies/Adverse Reactions: No Known Allergies Allergy (Verified 10/15/17 10:12) Past Medical History - General Information source: Patient - Social History Smoking Status: Never Smoker Cigarette use (# per day): No Chew tobacco use (# tins/day): No Smoking Education Provided: No Frequency of alcohol use: None Drug Abuse: None Lives with: [facility] - Assisted-living Family History: None Patient has suicidal ideation: No Patient has homicidal ideation: No - Past Medical History Cardiac Medical History: Reports: Hx Hypercholesterolemia, Hx Hypertension Denies: Hx Coronary Artery Disease, Hx Heart Attack Pulmonary Medical History: Reports: None Neurological Medical History: Reports: Hx Cerebrovascular Accident Endocrine Medical History: Reports: None Renal/ Medical History: Reports: Hx Renal Insufficiency Malignancy Medical History: Reports: Hx Skin Cancer GI Medical History: Reports: Hx Gastroesophageal Reflux Disease Musculoskeltal Medical History: Reports None Skin Medical History: Reports None Psychiatric Medical History: Reports: None Traumatic Medical History: Reports: None Infectious Medical History: Reports: None Past Surgical History: Reports: Hx Hysterectomy - Immunizations Hx Diphtheria, Pertussis, Tetanus Vaccination: Yes Hx Pneumococcal Vaccination: 03/16/10 Review of Systems - Review of Systems Constitutional: No symptoms reported EENT: No symptoms reported Cardiovascular: No symptoms reported Respiratory: No symptoms reported Gastrointestinal: No symptoms reported Genitourinary: No symptoms reported Female Genitourinary: No symptoms reported Musculoskeletal: No symptoms reported Skin: Other - Laceration to the face Hematologic/Lymphatic: No symptoms reported Neurological/Psychological: No symptoms reported Physical Exam - Vital signs Vitals: Pulse Resp BP Pulse Ox 50 L 16 101/84 99 10/15/17 10:18 10/15/17 10:18 10/15/17 10:18 10/15/17 10:18 Course - Vital Signs Vital signs: Temp Pulse Resp BP Pulse Ox 50 L 16 101/84 99 10/15/17 10:18 10/15/17 10:18 10/15/17 10:18 10/15/17 10:18 Procedures - Laceration/Wound Repair Right Face Time completed: 12:10 Wound length (cm): 3 Wound's Depth, Shape: Linear, Irregular Laceration pre-procedure: Sterile PPE donned, Sterile drapes applied, Shur- Clens applied Anesthetic type: Other Volume Anesthetic (mLs): 4 Wound explored: Contaminated Irrigated w/ Saline (mLs): 300 Wound Debrided: Minimal Wound Repaired With: Sutures Suture Size/Type: 5:0 Number of Sutures: 5 Layer Closure?: No Post-procedure NV exam normal: Yes Complications: No Discharge - Discharge Clinical Impression: Head injury Qualifiers: Encounter type: initial encounter Qualified Code(s): S09.90XA - Unspecified injury of head, initial encounter Facial laceration Qualifiers: Encounter type: initial encounter Qualified Code(s): S01.81XA - Laceration without foreign body of other part of head, initial encounter Chronic sinusitis Qualifiers: Sinusitis location: unspecified location Qualified Code(s): J32.9 - Chronic sinusitis, unspecified Condition: Stable Disposition: HOME, SELF-CARE Additional Instructions: HEAD INJURY PRECAUTIONS: At this point, there is no evidence that your head injury is serious. Observation is necessary, however. Take only clear liquids for the first few hours, unless told otherwise by the doctor. If no pain medication was prescribed, you may take acetaminophen according to the directions on the bottle. Do not take any medication that may alter your level of alertness (unless you've discussed it with the doctor first) . Limit activity for the first 24 hours. Bed rest is best. During the first 24 hours, check to see approximately every two to three hours that the patient is easily arousable, responds normally, and can perform common tasks such as walking without difficulty. Contact your doctor or go to the hospital if any of the following things occur: Persistent vomiting, difficulty in arousing the patient, worsening or continued headache, or failure to improve as expected. Head injuries can cause symptoms that persist for a few days or even a few weeks. Facial Laceration A laceration on the face usually heals quickly. Our treatment goal will be to avoid an unsightly scar or stitch-juarez. Your cut has been closed with the best techniques to avoid scarring, but a great deal depends on how well you protect the laceration -- and on your inherited tendency to scar. As facial cuts are usually caused by a blunt injury, it's usually best to rest for a day to avoid swelling. Do not allow any bumping or rubbing of the area. Keep the stitches dry. Follow the treatment plan the doctor has discussed with you and DO NOT DELAY getting the stitches out. Once stitches are removed, continue to protect the area from trauma and sunlight (use a sunscreen) for about six months. If any signs of infection occur (swelling, redness, increasing tenderness, red streaks, tender lumps in the neck or near the ear on the side of the laceration, or fever), see the doctor immediately. SOAP CLEANSING: Gently wash the wound daily using a mild soap (like Ivory, Phisoderm, Neutrogena). Use warm water, rubbing gently until all debris, ooze, and crusting have been washed from the wound. Allow to dry briefly (about 10 minutes) after cleaning. Repeat this cleansing at least three times a day for the first two days and then once or twice a day. ANTIBIOTIC OINTMENT PROTECTION: Your wounds are such that dressing them is not practical or optional. After cleansing, you should apply a thin coating of antibiotic ointment ( Bacitracin, not Neosporin) to the wounds at least three times daily. This lessens infection risk, and may decrease the amount of scarring. Use a q-tip or dull butter knife, not your finger, to apply this ointment. Any debris or ooze which builds up in the ointment should be gently rubbed off with a sterile gauze pad. Harder crusting may need to be gently scrubbed off with a clean wash cloth with soap and warm water, perhaps applying a warm, wet wash cloth to the wound for ten minutes first. Development of redness, severe itching, or blistering may mean allergy to the ointment. See the doctor. TETANUS IMMUNIZATION GIVEN: You have been given an immunization against tetanus. Please record this in your records. In general, a booster is needed only once every 10 years. The tetanus shot protects against tetanus or "lockjaw," which is a complication of certain wound infections (the tetanus shot cannot protect against the actual infection). The immunization site may become warm and red due to local reaction. If this occurs, apply warm compresses and take aspirin or ibuprofen to reduce inflammation and discomfort. Return for evaluation if the reaction becomes severe. Please follow-up with primary doctor for chronic condition of sinuses or showed on CT that was sent with her. FOLLOW-UP CARE: Please follow-up with primary doctor or return in __3___ days for an infection check and dressing change. Your sutures should be removed in __5___ days. To facilitate a timely removal of your sutures, you may return to the Emergency Department at [facility]. You do not need to call for an appointment, but the best time to come in for suture removal is early in the morning. If you have been referred to another physician for follow-up care, call that physicians office for an appointment as you were instructed. If you experience a significant change in your laceration, or if you are concerned there may be an infection (swelling, redness, drainage, increasing tenderness, red streaks, tender lumps in the armpit or groin above the laceration, or fever) , return to the Emergency Department immediately re-evaluation. Referrals: DAYANARA RICHARD MD [Primary Care Provider] - 10/18/17
== END 2017-10-15 12:35 | disposition home or self-care (01) ==
LOC: ER 10:10
DX: S01.81XA Laceration without foreign body of other part of head, initial encounter (principal); S09.90XA Unspecified injury of head, initial encounter; W18.2XXA Fall in (into) shower or empty bathtub, initial encounter; Y92.192 Bathroom in other specified residential institution as the place of occurrence of the external cause; J32.0 Chronic maxillary sinusitis; Z79.82 Long term (current) use of aspirin; I10 Essential (primary) hypertension; Z85.828 Personal history of other malignant neoplasm of skin
CPT/HCPCS: 99283; 90471; 70450; 90715; 12013; A9270; J3490

== ENCOUNTER → 2017-12-11 | Outpatient (CLI) | payer MEDICARE, MEDICAID ==
--- NOTE | 2017-12-11 13:44 | RADIOLOGY REPORT (SQ) ---
EXAM DESCRIPTION: BARIUM SWALLOW ESOPHAGUS COMPLETED DATE/TIME: 12/11/2017 10:03 am REASON FOR STUDY: DYSPHAGIA (R13.10) R13.10 DYSPHAGIA, UNSPECIFIED COMPARISON: None. TECHNIQUE: Under fluoroscopic guidance, patient ingested effervescent granules followed by thick and thin barium. Fluoroscopic spot images and routine radiographic images acquired and stored on PACS. 12 MM BARIUM TABLET GIVEN: No Not given LIMITATIONS: None. FLUOROSCOPY TIME: FLUORO TIME: 1.6 minutes 9 series of digital images saved to PACS. FINDINGS: NEUROMUSCULAR COORDINATION OF SWALLOW: Normal. No aspiration. ESOPHAGEAL MOTILITY: No esophageal spasm. Limited peristalsis. ESOPHAGEAL MUCOSA: There is distal esophageal mucosal irregularity just above of sliding hiatal herni a. This could reflect Kincaid's esophagus or esophagitis. Neoplasm could not entirely be excluded GASTRO-ESOPHAGEAL JUNCTION: There is a small to moderate size hiatal hernia with gastroesophageal ref lux. NON-GI TRACT STRUCTURES: No significant finding. OTHER: No other significant finding. IMPRESSION: Hiatal hernia with gastroesophageal reflux. Abnormal distal esophageal mucosa from reflux. Esophagitis or Kincaid's esophagus/tumor could not ex cluded. COMMENT: Quality ID [id number]: Final reports for procedures using fluoroscopy that document radiation exp osure indices, or exposure time and number of fluorographic images (if radiation exposure indices are not available) TECHNICAL DOCUMENTATION: JOB ID: [id number] [employer]- All Rights Reserved Reading location - IP/workstation name: [email or web address]
== END ==
LOC: RAD 09:21
PROVIDERS: ATTEND Internal Medicine Geriatric Medicine
DX: R13.10 Dysphagia, unspecified (principal)
CPT/HCPCS: 74220

== ENCOUNTER 2018-01-15 08:38 | Emergency (ER) | payer MEDICARE, MEDICAID ==
[2018-01-15] MEDS ORDERED: IPRATROPIUM/ALBUTEROL 0.5-2.5 MG/3 ML AMPUL NEB ONE (08:58)
--- NOTE | 2018-01-15 09:03 | ER Document Report ---
ED General - General Chief Complaint: Nonproductive Cough Stated Complaint: COUGH Time Seen by Provider: 01/15/18 08:52 Mode of Arrival: Ambulatory Information source: Legal Guardian Notes: 77-year-old non-verbal female presents to the emergency department for cough over the last week. Patient was seen by her family physician yesterday and diagnosed with aspiration pneumonia. She was started on levofloxacin. Patient took her first dose of the antibiotic this morning. Patient's guardian is bringing her to the emergency department because she feels the patient should be admitted. Only complaint is cough. Patient has not had complaints of fever, chills, rhinorrhea, sore throat, chest pain, shortness of breath. Patient is not on any home oxygen. TRAVEL OUTSIDE OF THE [place] IN LAST 30 DAYS: No - HPI Onset: Last week Onset/Duration: Gradual Quality of pain: No pain Severity: None Pain Level: Denies Associated symptoms: Productive cough Exacerbated by: Denies Relieved by: Denies Similar symptoms previously: Yes Recently seen / treated by doctor: Yes - PCP- on levofloxacin - Related Data Allergies/Adverse Reactions: No Known Allergies Allergy (Verified 01/15/18 08:39) Past Medical History - General Cannot obtain history due to: Other - non-verbal - Social History Smoking Status: Former Smoker Family History: None, Reviewed & Not Pertinent - Past Medical History Cardiac Medical History: Reports: Hx Hypercholesterolemia, Hx Hypertension Denies: Hx Coronary Artery Disease, Hx Heart Attack Pulmonary Medical History: Denies: Hx Asthma, Hx Bronchitis, Hx COPD, Hx Pneumonia Neurological Medical History: Reports: Hx Cerebrovascular Accident. Denies: Hx Seizures Renal/ Medical History: Reports: Hx Renal Insufficiency. Denies: Hx Peritoneal Dialysis Malignancy Medical History: Reports: Hx Skin Cancer GI Medical History: Reports: Hx Gastroesophageal Reflux Disease Musculoskeltal Medical History: Denies Hx Arthritis Past Surgical History: Reports: Hx Hysterectomy - Immunizations Hx Diphtheria, Pertussis, Tetanus Vaccination: Yes Hx Pneumococcal Vaccination: 03/16/10 Review of Systems - Review of Systems Constitutional: No symptoms reported EENT: No symptoms reported Cardiovascular: No symptoms reported Respiratory: Cough Gastrointestinal: No symptoms reported Female Genitourinary: No symptoms reported Musculoskeletal: No symptoms reported Skin: No symptoms reported Neurological/Psychological: No symptoms reported -: Yes All other systems reviewed and negative Physical Exam - Vital signs Vitals: Temp Pulse Resp BP Pulse Ox 97.8 F 58 L 20 105/85 98 01/15/18 08:45 01/15/18 08:45 01/15/18 08:45 01/15/18 08:45 01/15/18 08:45 Interpretation: Bradycardic - Notes Notes: PHYSICAL EXAMINATION: GENERAL: Well-appearing, well-nourished and in no acute distress. HEAD: Atraumatic. EYES: Pupils equal round and reactive to light, extraocular movements intact, conjunctiva are normal. ENT: Nares patent, oropharynx clear without exudates. Moist mucous membranes. NECK: Normal range of motion, supple without lymphadenopathy LUNGS: Diffuse wheezing. No rales or rhonchi HEART: Regular rate and rhythm without murmurs ABDOMEN: Soft, nontender, nondistended abdomen. No guarding, no rebound. No masses appreciated. Female : deferred Musculoskeletal: Normal range of motion, no pitting or edema. No cyanosis. NEUROLOGICAL: Cranial nerves grossly intact. Normal sensory, motor exams. Patient is non-verbal. SKIN: Warm, Dry, normal turgor, no rashes or lesions noted. Course - Re-evaluation Re-evalutation: 01/15/18 11:08 Vitals are stable. WBC is slightly elevated. Chest X-ray does not show an acute process. Patient just started on levofloxacin today. I discussed results with the physician primary care sports medicine. I will discharge the patient home as she's stable, there's no identifiable pneumonia, and the patient is following up with her primary care physician. I instructed the caregiver to continue the antibiotic as directed, to follow-up with the primary care physician for reevaluation this week, and to return to emergency department for any worsening symptoms. She is agreeable with plan of care. - Vital Signs Vital signs: Temp Pulse Resp BP Pulse Ox 97.8 F 58 L 20 110/60 98 01/15/18 08:45 01/15/18 08:45 01/15/18 10:05 01/15/18 10:05 01/15/18 10:05 - Laboratory Result Diagrams: 01/15/18 10:00 01/15/18 10:00 Laboratory results interpreted by me: 01/15/18 01/15/18 10:00 10:00 WBC 11.5 H RDW 22.2 H Band Neutrophils % 1 L Monocytes % (Manual) 17 H Abs Monocytes (Manual) 2.0 H BUN 21 H Est GFR ( Amer) 55 L Est GFR (Non-Af Amer) 46 L Direct Bilirubin 0.5 H Total Protein 8.6 H Discharge - Discharge Clinical Impression: Cough Condition: Stable Disposition: HOME, SELF-CARE Instructions: Cough Suppressant & Expectorant Medications, Pneumonia ([facility]) Prescriptions: Benzonatate [Tessalon Perle 100 mg Capsule] 100 mg PO Q8HP PRN #20 cap PRN Reason: Referrals: DAYANARA RICHARD MD [Primary Care Provider] - Follow up as needed
--- NOTE | 2018-01-15 10:03 | RADIOLOGY REPORT (SQ) ---
EXAM DESCRIPTION: CHEST 2 VIEWS COMPLETED DATE/TIME: 01/15/2018 9:46 am REASON FOR STUDY: cough COMPARISON: Two-view chest 08/27/2017 EXAM PARAMETERS: NUMBER OF VIEWS: two views TECHNIQUE: Digital Frontal and Lateral radiographic views of the chest acquired. RADIATION DOSE: NA LIMITATIONS: none FINDINGS: LUNGS AND PLEURA: No opacities, masses or pneumothorax. No pleural effusion. MEDIASTINUM AND HILAR STRUCTURES: No masses or contour abnormalities. HEART AND VASCULAR STRUCTURES: Moderate cardiomegaly BONES: No acute findings. HARDWARE: None in the chest. OTHER: No other significant finding. IMPRESSION: Moderate cardiomegaly. No acute infiltrates. No pleural effusion or pneumothorax. TECHNICAL DOCUMENTATION: JOB ID: [id number] [employer]- All Rights Reserved Reading location - IP/workstation name: [email or web address]
[2018-01-15 10:16] LABS: HEMATOCRIT 39.2 % (36.0-47.0); HEMOGLOBIN 12.7 g/dL (12.0-15.5); MEAN CORPUSCULAR HEMOGLOBIN 27.7 pg (27.0-33.4); MEAN CORPUSCULAR HGB CONC 32.4 g/dL (32.0-36.0); MEAN CORPUSCULAR VOLUME 85 fl (80-97); PLATELET COUNT 206 10^3/uL (150-450); RED BLOOD COUNT 4.59 10^6/uL (3.72-5.28); RED CELL DISTRIBUTION WIDTH 22.2 % (11.5-14.0); WHITE BLOOD COUNT 11.5 10^3/uL (4.0-10.5)
[2018-01-15 10:33] LABS: ALANINE AMINOTRANSFERASE 11 U/L (9-52); ALKALINE PHOSPHATASE 99 U/L (38-126); ANION GAP 11 (5-19); ASPARTATE AMINO TRANSFERASE 25 U/L (14-36); BILIRUBIN,DIRECT 0.5 mg/dL (0.0-0.4); BILIRUBIN,TOTAL 0.5 mg/dL (0.2-1.3); BLOOD UREA NITROGEN 21 mg/dL (7-20); CALCIUM 9.3 mg/dL (8.4-10.2); CARBON DIOXIDE 29 mmol/L (22-30); CHLORIDE 103 mmol/L (98-107); GLUCOSE 101 mg/dL (75-110); POTASSIUM 4.5 mmol/L (3.6-5.0); SODIUM 142.9 mmol/L (137-145); TOTAL PROTEIN 8.6 g/dL (6.3-8.2)
[2018-01-15 10:38] LABS: ABSOLUTE LYMPHOCYTES# (MANUAL) 2.2 10^3/uL (0.5-4.7); ABSOLUTE NEUTROPHILS# (MANUAL) 7.2 10^3/uL (1.7-8.2); BAND NEUTROPHILS % (MANUAL) 1 % (3-5); BASOPHILS % (MANUAL) 0 % (0-2); EOSINOPHILS % (MANUAL) 1 % (0-6); LYMPHOCYTES % (MANUAL) 18 % (13-45); MONOCYTES % (MANUAL) 17 % (3-13); SEGMENTED NEUTROPHILS % (MAN) 62 % (42-78); TOTAL CELLS COUNTED 100
[2018-01-15 10:39] LABS: ANISOCYTOSIS 3+; PLATELET COMMENT ADEQUATE
[2018-01-15 11:44] VITALS: BP 144/90
== END 2018-01-15 11:44 | disposition home or self-care (01) ==
LOC: ER 08:38
DX: R05 Cough (principal); E78.00 Pure hypercholesterolemia, unspecified; I10 Essential (primary) hypertension; Z86.73 Personal history of transient ischemic attack (TIA), and cerebral infarction without residual deficits; Z90.710 Acquired absence of both cervix and uterus
CPT/HCPCS: 94640; 99284; 36415; 85025; 80053; 71046; A9270; J7620

== ENCOUNTER 2018-01-29 16:25 | Day surgery (SDC) | payer MEDICARE, MEDICAID ==
[~2018-01-29 16:25] MED LIST: DIPHENHYDRAMINE HCL 50 MG/ML VIAL ONE; EPINEPHRINE INJ 1 MG/10 ML DISP.SYRIN ONE; FENTANYL CITRATE INJ/PF 100 MCG/2 ML AMPUL ONE; FLUMAZENIL INJ 0.5 MG/5 ML VIAL ONE; GLUCAGON,HUMAN RECOMB 1 MG INJ ONE; NALOXONE HCL INJ/PF 0.4 MG/1 ML SDV ONE; ONDANSETRON HCL INJ/PF 4 MG/2 ML SDV ONE
[2018-01-29] MEDS: MIDAZOLAM 2 MG/2 ML INJ ONE ×2 (17:32→17:36)
--- NOTE | 2018-01-29 17:59 | Operative Report ---
Operative Report DATE OF SURGERY: 01/29/18 Operative Report: Pre-op diagnosis: Heme-positive stool Post-op diagnosis: 1. Mild antral gastritis 2. Sigmoid diverticulosis 3. Internal hemorrhoids Surgery: Upper endoscopy with biopsy and Colonoscopy Medications: Versed 2mg, Fentanyl 50mcg IV push Tissue removed: Antral and gastric body biopsy Procedure: After informed consent obtained from patient, patient's pharynx was sprayed with Hurricane and conscious sedation was achieved. The upper endoscope was then inserted into the esophagus under direct vision and advanced into the stomach and further into the duodenum. Detailed examination of the duodenum, stomach and the esophagus was then performed. A digital rectal examination was performed and this was unremarkable. The colonoscope was inserted into the rectum and advanced to the cecum. The appendiceal orifice and the terminal ileum were both identified. The mucosa was examined into details as the colonoscope was slowly pulled out of the patient. The endoscope was retroflexed in the rectum. Patient tolerated the procedure well. Findings Esophagus: Some evidence of scarring at the GE junction situated at 30 cm Stomach: Mild erythema in the antrum. Duodenum: Normal Cecum: Normal Ascending colon: Normal Transverse colon: Normal Descending colon: Normal Sigmoid colon: Moderate amount of diverticuli Rectum: Normal except for internal hemorrhoids Plan: High-fiber diet. Continue omeprazole. Await pathology OPERATION: .
[2018-01-29 18:54] VITALS: BP 154/74
== END 2018-01-29 18:50 | disposition home or self-care (01) ==
LOC: END 16:25
PROVIDERS: ATTEND Internal Medicine Gastroenterology
DX: K29.70 Gastritis, unspecified, without bleeding (principal); K57.30 Diverticulosis of large intestine without perforation or abscess without bleeding; K64.8 Other hemorrhoids; K21.9 Gastro-esophageal reflux disease without esophagitis; I10 Essential (primary) hypertension; E78.00 Pure hypercholesterolemia, unspecified; E03.9 Hypothyroidism, unspecified; I51.9 Heart disease, unspecified; E66.9 Obesity, unspecified; D64.9 Anemia, unspecified; Z79.899 Other long term (current) drug therapy; Z79.82 Long term (current) use of aspirin; Z68.32 Body mass index [BMI] 32.0-32.9, adult
CPT/HCPCS: 43239; 88342 ×2; 88305 ×2; G0121; J2250; J3010; J0171; J1200; J1610; J2310; J2405; J3490

== ENCOUNTER → 2018-03-01 | Outpatient (CLI) | payer MEDICARE, MEDICAID ==
--- NOTE | 2018-03-01 10:54 | RADIOLOGY REPORT (SQ) ---
EXAM DESCRIPTION: CT CHEST WITH COMPLETED DATE/TIME: 03/01/2018 9:57 am REASON FOR STUDY: MALIGNANT MELANOMA OF RIGHT LOWER LIMB, INCLUDING HIP C43.71 MALIGNANT MELANOMA O F RIGHT LOWER LIMB, INCLUDING HIP COMPARISON: 02/09/2017 TECHNIQUE: CT scan of the chest performed using helical scanning technique with dynamic intravenous contrast injection. Images reviewed with lung, soft tissue and bone windows. Reconstructed coronal and sagittal MPR images reviewed. All images stored on PACS. All CT scanners at this facility use dose modulation, iterative reconstruction, and/or weight based d osing when appropriate to reduce radiation dose to as low as reasonably achievable (ALARA). [facility]: Dose Right [facility]: CareDose [facility]: Dose Right [facility]: Teradose 4D [facility]: Smartsy CONTRAST TYPE AND DOSE: 67 mL Omnipaque 350- low osmolar. RENAL FUNCTION: Creatinine 1.5 GFR 33 RADIATION DOSE: . LIMITATIONS: None. FINDINGS: LUNGS AND PLEURA: There is subsegmental atelectasis or pleural thickening along the fissur e in the right upper lobe. No pulmonary masses are seen. There is no infiltrate or pleural effusion . HILAR AND MEDIASTINAL STRUCTURES: No identified masses or abnormal nodes. HEART AND VASCULAR STRUCTURES: No aneurysm or dissection. No central pulmonary emboli. No pericardi al effusion. HARDWARE: None in the chest. UPPER ABDOMEN: See separate report of the CT of the abdomen. THYROID AND OTHER SOFT TISSUES: No masses. No adenopathy. BONES: No significant finding. OTHER: No other significant finding. IMPRESSION: Subsegmental atelectasis versus pleural thickening in the right upper lobe along the fis sure. No distinct metastases to the lung or bones are appreciated. TECHNICAL DOCUMENTATION: JOB ID: [id number] Quality ID # [id number]: Final reports with documentation of one or more dose reduction techniques (e.g., Au tomated exposure control, adjustment of the mA and/or kV according to patient size, use of iterative reconstruction technique) 2010 [employer]- All Rights Reserved Reading location - IP/workstation name: [email or web address]
--- NOTE | 2018-03-01 11:08 | RADIOLOGY REPORT (SQ) ---
EXAM DESCRIPTION: CT ABD/PELVIS WITH IV ORAL COMPLETED DATE/TIME: 03/01/2018 9:57 am REASON FOR STUDY: MALIGNANT MELANOMA OF RIGHT LOWER LIMB, INCLUDING HIP C43.71 MALIGNANT MELANOMA O F RIGHT LOWER LIMB, INCLUDING HIP COMPARISON: CT abdomen pelvis 01/31/2016, 02/09/2017 TECHNIQUE: CT scan of the abdomen and pelvis performed using helical scanning technique with dynamic intravenous contrast injection. Patient drank oral contrast. Images reviewed with lung, soft tissue , and bone windows. Reconstructed coronal and sagittal MPR images reviewed. Delayed images for evalua tion of the urinary system also acquired. All images stored on PACS. All CT scanners at this facility use dose modulation, iterative reconstruction, and/or weight based d osing when appropriate to reduce radiation dose to as low as reasonably achievable (ALARA). [facility]: Dose Right [facility]: CareDose [facility]: Dose Right [facility]: Teradose 4D [facility]: Ideal Me CONTRAST TYPE AND DOSE: contrast/concentration: Isovue 350.00 mg/ml; Total Contrast Delivered: 67.0 ml; Total Saline Delivered: 65.0 ml RENAL FUNCTION: Creatinine 1.5 RADIATION DOSE: CT Rad equipment meets quality standard of care and radiation dose reduction techniq ues were employed. CTDIvol: 10.8 - 14.8 mGy. DLP: 1866 mGy-cm.. LIMITATIONS: None. FINDINGS: LOWER CHEST: No significant findings. No nodules or infiltrates. LIVER: Normal size. No masses. No dilated ducts. SPLEEN: Small lobular shaped spleen, 5 cm in greatest craniocaudad length unchanged from prior studie s PANCREAS: No masses. No significant calcifications. No adjacent inflammation or peripancreatic fluid collections. Pancreatic duct not dilated. GALLBLADDER: No identified stones by CT criteria. No inflammatory changes to suggest cholecystitis. ADRENAL GLANDS: No significant masses or asymmetry. RIGHT KIDNEY AND URETER: No solid masses. Multifocal areas of right renal cortical thinning along th e upper and lower pole kidney, likely from childhood vesicoureteral reflux and remote prior scarring. No significant calcifications. No hydronephrosis or hydroureter. LEFT KIDNEY AND URETER: Atrophic, 3 cm in greatest craniocaudad length. Nonobstructive upper and low er pole left renal calcifications. No left hydronephrosis or hydroureter. AORTA AND VESSELS: No aneurysm. No dissection. 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 Superior mesenteric artery widely patent. Right r enal artery widely patent. Left renal artery chronically occluded. RETROPERITONEUM: No retroperitoneal adenopathy, hemorrhage or masses. BOWEL AND PERITONEAL CAVITY: Patient drank oral contrast. No CT evidence of bowel obstruction, free intraperitoneal air or fluid. No abscess APPENDIX: Normal. PELVIS: No mass. No free fluid. No adenopathy. Post hysterectomy. Normal size bladder with 1.5 cm bladder dome diverticulum on coronal image 56 ABDOMINAL WALL: No masses. No hernias. BONES: Central canal narrowing at L4-5 related to degenerative anterolisthesis OTHER: No other significant finding. IMPRESSION: No CT evidence of metastatic disease to the abdomen or pelvis given history of right low er extremity melanoma TECHNICAL DOCUMENTATION: JOB ID: [id number] Quality ID # [id number]: Final reports with documentation of one or more dose reduction techniques (e.g., Au tomated exposure control, adjustment of the mA and/or kV according to patient size, use of iterative reconstruction technique) 2010 [employer]- All Rights Reserved Reading location - IP/workstation name: [email or web address]
== END ==
LOC: RAD 09:15
PROVIDERS: ATTEND Internal Medicine Medical Oncology
DX: C43.71 Malignant melanoma of right lower limb, including hip (principal)
CPT/HCPCS: 71260; 74177; 82565

== ENCOUNTER 2019-01-02 13:54 | Emergency (ER) | payer MEDICARE, MEDICAID ==
--- NOTE | 2019-01-02 14:40 | ER Document Report ---
ED Medical Screen (RME) - General Chief Complaint: Vaginal Bleeding Stated Complaint: ABNORMAL BLEEDING Time Seen by Provider: 01/02/19 14:32 Primary Care Provider: DAYANARA RICHARD MD [Primary Care Provider] - Follow up as needed Mode of Arrival: Wheelchair Information source: Patient Notes: Patient presents to the emergency department with reports of vaginal bleeding with clots. Care worker reports patient lives at [facility]. Has a history of moderate intellectual delay with recurrent melatoma, hypertension chronic kidney disease. Healthcare worker reports when they got patient up from the bed her depends was full of blood. And she continues to bleed clots noted. I have greeted and performed a rapid initial assessment of this patient. A comprehensive ED assessment and evaluation of the patient, analysis of test results and completion of the medical decision making process will be conducted by additional ED providers. Dictation of this chart was performed using voice recognition software; therefore, there may be some unintended grammatical errors. TRAVEL OUTSIDE OF THE [place] IN LAST 30 DAYS: No - Related Data Allergies/Adverse Reactions: No Known Allergies Allergy (Verified 01/02/19 13:56) Past Medical History - Past Medical History Cardiac Medical History: Reports: Hx Coronary Artery Disease, Hx Hypercholesterolemia, Hx Hypertension Denies: Hx Heart Attack Pulmonary Medical History: Denies: Hx Asthma, Hx Bronchitis, Hx COPD, Hx Pneumonia Neurological Medical History: Denies: Hx Cerebrovascular Accident, Hx Seizures Renal/ Medical History: Reports: Hx Renal Insufficiency. Denies: Hx Peritoneal Dialysis Malignancy Medical History: Reports: Hx Skin Cancer GI Medical History: Reports: Hx Gastroesophageal Reflux Disease Musculoskeltal Medical History: Denies Hx Arthritis Past Surgical History: Reports: Hx Hysterectomy - Immunizations Hx Diphtheria, Pertussis, Tetanus Vaccination: Yes Influenza Administration Date for 04/2017 - 09/2017 Season: 07/16/17 Physical Exam - Vital signs Vitals: Pulse Resp BP Pulse Ox 55 L 18 132/89 H 94 01/02/19 14:00 01/02/19 14:00 01/02/19 14:00 01/02/19 14:00 Course - Vital Signs Vital signs: Temp Pulse Resp BP Pulse Ox 55 L 18 132/89 H 94 01/02/19 14:00 01/02/19 14:00 01/02/19 14:00 01/02/19 14:00 Doctor's Discharge - Discharge Referrals: OSUNKOYA,DAYANARA, MD [Primary Care Provider] - Follow up as needed
[2019-01-02 16:59] LABS: ABSOLUTE LYMPHOCYTES (AUTO) 1.9 10^3/uL (0.5-4.7); ABSOLUTE MONOCYTES (AUTO) 0.8 10^3/uL (0.1-1.4); ABSOLUTE NEUT (AUTO) 2.6 10^3/uL (1.7-8.2); BASOPHILS % (AUTO) 0.8 % (0-2); EOSINOPHILS % (AUTO) 0.6 % (0-6); HEMATOCRIT 38.4 % (36.0-47.0); HEMOGLOBIN 12.9 g/dL (12.0-15.5); LYMPHOCYTES % (AUTO) 35.8 % (13-45); MEAN CORPUSCULAR HEMOGLOBIN 32.2 pg (27.0-33.4); MEAN CORPUSCULAR HGB CONC 33.6 g/dL (32.0-36.0); MEAN CORPUSCULAR VOLUME 96 fl (80-97); MONOCYTES % (AUTO) 14.5 % (3-13); PLATELET COUNT 188 10^3/uL (150-450); RED BLOOD COUNT 4.01 10^6/uL (3.72-5.28); RED CELL DISTRIBUTION WIDTH 13.3 % (11.5-14.0); SEGMENTED NEUTROPHILS % (AUTO) 48.3 % (42-78); TOTAL CELLS COUNTED % (AUTO) 100 %; WHITE BLOOD COUNT 5.4 10^3/uL (4.0-10.5)
[2019-01-02 17:16] LABS: ALANINE AMINOTRANSFERASE 11 U/L (9-52); ALBUMIN 4.2 g/dL (3.5-5.0); ALKALINE PHOSPHATASE 141 U/L (38-126); ANION GAP 10 (5-19); ASPARTATE AMINO TRANSFERASE 16 U/L (14-36); BILIRUBIN,DIRECT 0.3 mg/dL (0.0-0.4); BILIRUBIN,TOTAL 0.3 mg/dL (0.2-1.3); BLOOD UREA NITROGEN 29 mg/dL (7-20); CALCIUM 9.5 mg/dL (8.4-10.2); CARBON DIOXIDE 28 mmol/L (22-30); CHLORIDE 100 mmol/L (98-107); GLUCOSE 107 mg/dL (75-110); POTASSIUM 4.5 mmol/L (3.6-5.0)
--- NOTE | 2019-01-02 19:09 | ER Document Report ---
ED General - General Chief Complaint: Vaginal Bleeding Stated Complaint: ABNORMAL BLEEDING Time Seen by Provider: 01/02/19 14:32 Primary Care Provider: DAYANARA RICHARD MD [Primary Care Provider] - Follow up as needed Mode of Arrival: Wheelchair Information source: Legal Guardian Notes: This is a 78-year-old female with a history of chronic kidney disease, hyperten aurora, intellectual delay (resident of the [facility]) is brought into the emergency room with bleeding. They are unsure whether the bleeding is from the vagina or the bladder. Patient is not had any abdominal pain. Patient is not had any fever. Patient is not on any anticoagulation other than baby aspirin. Medicines: Propranolol 60 mg ER daily Inderal La 80 mg PO QHS Inderal Aspirin 81 mg daily Ceterizine 10 mg PO daily Omeprazole 20 mg Daily Norvasc 2.5 mg Daily Levothyroxine 88 mcg daily Crestor 80 mg daily Vit C, Iron TRAVEL OUTSIDE OF THE [place] IN LAST 30 DAYS: No - HPI Onset: This afternoon Onset/Duration: Gradual Quality of pain: No pain Severity: None Pain Level: Denies Associated symptoms: denies: Chest pain, Fever, Shortness of breath Exacerbated by: Denies Relieved by: Denies Similar symptoms previously: No Recently seen / treated by doctor: Yes - Related Data Allergies/Adverse Reactions: No Known Allergies Allergy (Verified 01/02/19 13:56) Past Medical History - General Information source: Patient - Social History Smoking Status: Never Smoker Cigarette use (# per day): No Chew tobacco use (# tins/day): No Frequency of alcohol use: None Drug Abuse: None Lives with: Other - assisted Family History: None, Reviewed & Not Pertinent Patient has suicidal ideation: No Patient has homicidal ideation: No - Past Medical History Cardiac Medical History: Reports: Hx Coronary Artery Disease, Hx Hypercholesterolemia, Hx Hypertension Denies: Hx Heart Attack Pulmonary Medical History: Denies: Hx Asthma, Hx Bronchitis, Hx COPD, Hx Pneumonia Neurological Medical History: Denies: Hx Cerebrovascular Accident, Hx Seizures Renal/ Medical History: Reports: Hx Renal Insufficiency. Denies: Hx Peritoneal Dialysis Malignancy Medical History: Reports: Hx Skin Cancer GI Medical History: Reports: Hx Gastroesophageal Reflux Disease Musculoskeletal Medical History: Denies Hx Arthritis Past Surgical History: Reports: Hx Hysterectomy - Immunizations Hx Diphtheria, Pertussis, Tetanus Vaccination: Yes Hx Pneumococcal Vaccination: 03/16/10 Review of Systems - Review of Systems Constitutional: denies: Chills, Fever EENT: No symptoms reported Cardiovascular: No symptoms reported Respiratory: No symptoms reported Gastrointestinal: No symptoms reported Genitourinary: See HPI Female Genitourinary: See HPI Musculoskeletal: No symptoms reported Skin: No symptoms reported Hematologic/Lymphatic: No symptoms reported Neurological/Psychological: No symptoms reported Physical Exam - Vital signs Vitals: Pulse Resp BP Pulse Ox 55 L 18 132/89 H 94 01/02/19 14:00 01/02/19 14:00 01/02/19 14:00 01/02/19 14:00 Notes: Physical exam: GENERAL: 78-year-old female, alert and oriented x3, no acute distress. HEAD: Atraumatic, normocephalic. EYES: Pupils equal round and reactive to light, extraocular movements intact, sclera anicteric, conjunctiva are normal. ENT: TMs normal, nares patent, oropharynx clear without exudates. Moist mucous membranes. NECK: Normal range of motion, supple without obvious mass or JVD. LUNGS: Breath sounds clear to auscultation bilaterally and equal. No wheezes rales or rhonchi. HEART: Regular rate and rhythm without murmurs, rubs or gallops. ABDOMEN: Soft, normoactive bowel sounds. No tenderness to palpation. No guarding, no rebound. No masses appreciated. Vaginal: There is evidence of blood on the external genitalia which was cleaned off. Patient did not tolerate speculum due to atrophy. Manual exam did not reveal any masses. There is no gross bleeding in the vaginal canal. A straight cath was placed anterior the urethra which revealed gross hematuria with blood c lots. Rectum: No evidence of blood Head side ultrasound: It does appear to be either mass or blood clots within the bladder EXTREMITIES: Normal range of motion, no pitting or edema. No clubbing or cyanosis. NEUROLOGICAL: Cranial nerves II through XII grossly intact. Normal speech, moving all extremities. PSYCH: Normal mood, normal affect. SKIN: Warm, Dry, normal turgor, no rashes or lesions noted. Course - Re-evaluation Re-evalutation: 01/02/19 22:30 Note: The CT of the abdomen did show some filling defects in the right kidney which was felt to be indeterminant. On bedside ultrasound, On bedside ultrasound, I was able to see echogenic material within the bladder consistent with blood clots. Did place a size 26 Lugo catheter and removed large blood clots. We did irrigate the patient with 2 L of saline afterwards. The urine has definitely gotten much clear but is not been totally clear. The concern is that given the patient's baseline cognition, that care in the outpatient setting will be an issue. I discussed this issue with Dr. Mccain and he is accepted the patient over at [facility] for further evaluation. The patient was given 1 g of IV ceftriaxone. IV normal saline at 150 cc an hour The 26 Lugo was changed over to a 24 Lugo for patient comfort. 01/02/19 22:42 - Vital Signs Vital signs: Temp Pulse Resp BP Pulse Ox 98.2 F 59 L 15 103/71 96 01/02/19 20:46 01/02/19 20:46 01/02/19 20:46 01/02/19 20:46 01/02/19 20:46 - Laboratory Result Diagrams: 01/02/19 16:39 01/02/19 16:39 Laboratory results interpreted by me: 01/02/19 01/02/19 01/02/19 16:39 16:39 18:20 Monocytes % 14.5 H BUN 29 H Creatinine 1.54 H Est GFR ( Amer) 39 L Est GFR (Non-Af Amer) 32 L Alkaline Phosphatase 141 H Urine Protein >=500 H Urine Blood SMALL H Ur Leukocyte Esterase TRACE H Urine Ascorbic Acid 40 H - Diagnostic Test Radiology reviewed: Image reviewed, Reports reviewed - CT of the abdomen shows a polypoid filling defect in the posterior wall of the right renal pelvis as well as within the anterior wall of the mid calyx of the right kidney. These are listed by the radiologist as indeterminant findings. There is heterogeneous material within the urinary bladder. Procedures - Additional Procedures Other Time performed: 22:33 Notes: 01/02/19 22:34 26 Icelandic Lugo placed by me. Large blood clots removed from the bladder. Bladder was irrigated. The urine never completely cleared Discharge - Discharge Clinical Impression: Gross hematuria Condition: Stable Disposition: [facility] Referrals: DAYANARA RICHARD MD [Primary Care Provider] - Follow up as needed
[2019-01-02 19:18] LABS: BILIRUBIN,URINE NEGATIVE (NEGATIVE); GLUCOSE, URINE NEGATIVE (NEGATIVE); KETONES,URINE NEGATIVE (NEGATIVE); LEUKOCYTE ESTERASE,URINE TRACE (NEGATIVE); NITRITE,URINE NEGATIVE (NEGATIVE); PROTEIN,URINE >=500 mg/dL (NEGATIVE); URINE SPECIFIC GRAVITY 1.015; UROBILINOGEN,URINE NEGATIVE mg/dL (<2.0)
[2019-01-02 19:19] LABS: COLOR,URINE RED
[2019-01-02 19:20] LABS: APPEARANCE,URINE TURBID
[2019-01-02] MEDS ORDERED: CEFTRIAXONE 1 GM/D5W RTU 1 GM/50 ML RTUPB IV ONE (19:46)
--- NOTE | 2019-01-02 20:30 | RADIOLOGY REPORT (SQ) ---
EXAM DESCRIPTION: CT ABDOMEN PELVIS WITH IV CONTRAST COMPLETED DATE/TME: 01/02/2019 18:56 CLINICAL HISTORY: 78 years, Female, abd pain COMPARISON: Prior study from 03/01/2018 TECHNIQUE: Contrast enhanced CT of the abdomen/pelvis was performed. Coronal and sagittal reformations were created. Images stored on PACS. All CT scanners at this facility use dose modulation, iterative reconstruction, and/or weight based dosing when appropriate to reduce radiation dose to as low as reasonably achievable (ALARA). [facility]: Dose Right [facility]: CareDose [facility]: Dose Right [facility]: Teradose 4D [facility]: [employer] LIMITATIONS: None. FINDINGS: Limited evaluation of the lower chest reveals a curvilinear band of opacity about the basilar segments of the left lower lobe, indicative of atelectasis/scar. There is a small hiatal hernia. The liver is diffusely low in attenuation. Otherwise, the liver appears to enhance normally. The spleen is atrophic. This is unchanged. Left kidney is atrophic, containing a few dystrophic calcifications. Multifocal cortical scarring is noted about the right kidney. Elements of urothelial thickening are suspected about the right renal collecting system. In addition, there is a small polypoid filling defect located about the posterior wall of the right renal pelvis on image 39 of series 5 measuring 0.3 x 0.3 cm in size. A similar finding is suspected about the middle pole calyx of the right kidney measuring 0.4 x 0.3 cm in size on image 36 of series 5. The urinary bladder is collapsed, thus its evaluation is limited. However, it does appear diffusely thick-walled, containing a few foci of gas density as well as heterogenous material internally potentially indicative of blood product. Uterus is absent. Neither ovary is visualized. Scattered colonic diverticula are noted without pericolonic inflammation. The small and large bowel appear normal in caliber without areas of focal wall thickening. No evidence of bowel obstruction. Appendix is not visualized. Calcified/noncalcified atherosclerotic plaque is noted about the distal thoracic aorta. No suspicious lymphadenopathy is appreciated. No drainable fluid collections. Tiny fat-containing umbilical hernia is evident. Bone windows show no destructive osseous lesions. There is grade 1 anterolisthesis of L4 upon L5. IMPRESSION: Mild urothelial thickening about the right renal collecting system with additional urinary bladder wall thickening. Correlate for cystitis/ascending urinary tract infection. Polypoid filling defect located about the posterior wall of the right renal pelvis as well as within the anterior wall of the mid pole calyx of the right kidney. These are indeterminate though malignancy/small transitional cell carcinomas are possibilities. Heterogenous material within the urinary bladder. Correlate for hematuria. TECHNICAL DOCUMENTATION: Quality ID # 436: Final reports with documentation of one or more dose reduction techniques (e.g., Automated exposure control, adjustment of the mA and/or kV according to patient size, use of iterative reconstruction technique) copyright 2011 [employer]- All Rights Reserved
[2019-01-02] MEDS ORDERED: NORMAL SALINE 1000 ML 1,000 ML IV ONE (22:41)
[2019-01-02 23:42] VITALS: BP 130/90
== END 2019-01-02 23:06 | disposition short-term general hospital (02) ==
LOC: ER 13:54
DX: R31.0 Gross hematuria (principal); I12.9 Hypertensive chronic kidney disease with stage 1 through stage 4 chronic kidney disease, or unspecified chronic kidney disease; N18.9 Chronic kidney disease, unspecified; Z90.710 Acquired absence of both cervix and uterus; Z79.82 Long term (current) use of aspirin; I25.10 Atherosclerotic heart disease of native coronary artery without angina pectoris; E78.00 Pure hypercholesterolemia, unspecified
CPT/HCPCS: 99285; 51702; 96365; 36415; 87086; 85025; 87088; 80053; 81001; 87186; 74177; J7030; J0696

== ENCOUNTER → 2019-07-02 | Outpatient (CLI) | payer MEDICARE, MEDICAID ==
[2019-07-02 09:44] LABS: ANION GAP 12 (5-19); BLOOD UREA NITROGEN 24 mg/dL (7-20); CALCIUM 9.9 mg/dL (8.4-10.2); CARBON DIOXIDE 28 mmol/L (22-30); CHLORIDE 103 mmol/L (98-107); GLUCOSE 92 mg/dL (75-110); POTASSIUM 4.3 mmol/L (3.6-5.0)
[2019-07-02 10:13] LABS: FREE T3 2.01 pg/mL (2.77-5.27); FREE T4 (FREE THYROXINE) 1.4 ng/dL (0.78-2.19)
[2019-07-02 10:26] LABS: THYROID STIMULATING HORMONE 32.7 uIU/mL (0.47-4.68)
== END ==
LOC: OD 07:43
PROVIDERS: ATTEND Internal Medicine Geriatric Medicine
DX: E03.9 Hypothyroidism, unspecified (principal); N18.3 Chronic kidney disease, stage 3 (moderate)
CPT/HCPCS: 36415; 80048; 83735; 84100; 84439; 84443; 84481; 86376

== ENCOUNTER → 2019-08-01 | Outpatient (CLI) | payer MEDICARE, MEDICAID ==
--- NOTE | 2019-08-01 12:06 | RADIOLOGY REPORT (SQ) ---
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 TECHNIQUE: CT scan performed of the chest without intravenous contrast. Images reviewed with lung, soft tissue and bone windows. Reconstructed coronal and sagittal MPR images reviewed. All images st ored on PACS. All CT scanners at this facility use dose modulation, iterative reconstruction, and/or weight based d osing when appropriate to reduce radiation dose to as low as reasonably achievable (ALARA). [facility]: Dose Right [facility]: CareDose [facility]: Dose Right [facility]: Teradose 4D [facility]: [employer] LIMITATIONS: No technical limitations. FINDINGS: LUNGS AND PLEURA: The trachea and main bronchi are patent. There is a parenchymal band in the left lower lobe. There is no consolidation, pleural effusion, ground-glass opacification, great er than 6 mm pulmonary nodule, or pneumothorax. HILAR AND MEDIASTINAL STRUCTURES: Evaluation is limited due to the absence of intravenous contrast. There is no mediastinal adenopathy or mass. HEART AND VASCULAR STRUCTURES: The heart is enlarged. There is no pericardial effusion. The main pu lmonary artery measures 3.1 cm in transverse diameter - clinical correlation for signs and symptoms o f pulmonary hypertension is recommended. UPPER ABDOMEN: Refer to the separate report of the CT of the abdomen. THYROID AND OTHER SOFT TISSUES: No masses or adenopathy. BONES: Findings of DISH. No fracture or osseous lesion. HARDWARE: None in the chest. OTHER: No other findings. IMPRESSION: No acute cardiopulmonary process. TECHNICAL DOCUMENTATION: JOB ID: [id number] Quality ID # [id number]: Final reports with documentation of one or more dose reduction techniques (e.g., Au tomated exposure control, adjustment of the mA and/or kV according to patient size, use of iterative reconstruction technique) 2010 [employer]- All Rights Reserved Reading location - IP/workstation name: [email or web address]
--- NOTE | 2019-08-01 13:36 | RADIOLOGY REPORT (SQ) ---
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 Images reviewed with lung, soft tissue, and bone windows. Reconstructed coronal and sagittal MPR images revi ewed. All images stored on PACS. All CT scanners at this facility use dose modulation, iterative reconstruction, and/or weight based d osing when appropriate to reduce radiation dose to as low as reasonably achievable (ALARA). [facility]: Dose Right [facility]: CareDose [facility]: Dose Right [facility]: Teradose 4D [facility]: [employer] RADIATION DOSE: CT Rad equipment meets quality standard of care and radiation dose reduction techniq ues were employed. CTDIvol: 6.5 - 7.8 mGy. DLP: 590 mGy-cm.mGy. LIMITATIONS: None. FINDINGS: LOWER CHEST: Refer to the separate report of the CT of the chest. NON-CONTRASTED LIVER, SPLEEN, ADRENALS: Evaluation is limited due to the absence of intravenous contr ast. There is no CT evidence hepatic steatosis. The spleen is atrophic. There is no abnormality of the adrenal glands. PANCREAS: No acute gross abnormality of the pancreas. GALLBLADDER: No abnormality that is apparent on CT. RIGHT KIDNEY AND URETER: Evaluation is limited due to the absence of intravenous contrast. There are several cortical defects in the upper pole of the kidney. There is no hydronephrosis, nephrolithias is, hydroureter or ureterolithiasis. LEFT KIDNEY AND URETER: Evaluation is limited due to the absence of intravenous contrast. There is e nd-stage renal atrophy. AORTA AND RETROPERITONEUM: No aneurysm of the abdominal aorta. No retroperitoneal adenopathy, hemorr harrison or mass. BOWEL AND PERITONEAL CAVITY: Colonic diverticulosis without diverticulitis. The stomach is distended . There is no bowel obstruction, bowel wall thickening, or pericolonic/perienteric inflammation. Th ere is no mesenteric adenopathy, free intraperitoneal fluid, or mesenteric/ omental inflammation. APPENDIX: Unable to identify the appendix. PELVIS, BLADDER, AND ABDOMINAL WALL:The wall of the urinary bladder is circumferentially thickened. There is a fat containing right inguinal hernia. There is no abnormality of the adnexa that is appar ent on CT. BONES: Unchanged grade 1 anterolisthesis of L4 relative to L5. There is no fracture or osseous lesio n. OTHER: No other finding. IMPRESSION: 1. No acute intra- abdominal abnormality or evidence of intra-abdominal/pelvic metastase s. 2. The wall of the urinary bladder is circumferentially thickened. Correlate with clinical findings to exclude an acute cystitis. COMMENT: Quality ID # 436: Final reports with documentation of one or more dose reduction techniques (e.g., Automated exposure control, adjustment of the mA and/or kV according to patient size, use of iterative reconstruction technique) TECHNICAL DOCUMENTATION: JOB ID: [id number] [email or web address]- All Rights Reserved Reading location - IP/workstation name: [email or web address]
== END ==
LOC: RAD 08:23
PROVIDERS: ATTEND Internal Medicine Medical Oncology
DX: C43.71 Malignant melanoma of right lower limb, including hip (principal)
CPT/HCPCS: 71250; 74176; 82565

== ENCOUNTER → 2019-12-04 | Outpatient (CLI) | payer MEDICARE, MEDICAID ==
--- NOTE | 2019-12-04 14:43 | RADIOLOGY REPORT (SQ) ---
EXAM DESCRIPTION: U/S RETROPERITON (RENAL/AORTA) IMAGES COMPLETED DATE/TIME: 12/04/2019 1:54 pm REASON FOR STUDY: (N02.9)RECURRENT AND PERST HEMATURIA W UNSP MORPHOLOGIC CHANGES N02.9 RECURRENT A ND PERST HEMATURIA W UNSP MORPHOLOGIC SIMS COMPARISON: 01/28/2015 TECHNIQUE: Dynamic and static grayscale images acquired of the kidneys and bladder and recorded on P ACS. Additional selected color Doppler and spectral images recorded. LIMITATIONS: None. FINDINGS: RIGHT KIDNEY: Normal size, 8 cm. Heterogeneous echogenicity. Slightly lobulated. No mas s. No hydronephrosis. No calcification. LEFT KIDNEY: Not seen. Kidney was seen to be markedly hypoplastic/atrophic on a CT from 08/01/2019. BLADDER: No masses. OTHER FINDINGS: No other significant finding. IMPRESSION: Slightly lobulated right kidney. Somewhat heterogeneous echogenicity. Consider MRI bec ause of persistent hematuria. Findings as described. TECHNICAL DOCUMENTATION: JOB ID: [id number] 2010 [employer]- All Rights Reserved Reading location - IP/workstation name: [email or web address]
== END ==
LOC: RAD 13:21
PROVIDERS: ATTEND Internal Medicine Geriatric Medicine
DX: N02.9 Recurrent and persistent hematuria with unspecified morphologic changes (principal)
CPT/HCPCS: 76770